=== PATIENT | male | born 1960 | race Caucasian/White ===

== ENCOUNTER → 2017-02-27 | Outpatient (CLI) | payer BC ==
[~2017-02-27] VITALS: Ht 274.3 cm; Wt 82.0 kg
[~2017-02-27] MED LIST: ATOR10TA82 PO; DEXT30TA7 PO; GLC/500 PO; LISI5TAB3 PO; PRLSR20 PO
[2017-02-27 14:13] VITALS: BP 116/72; PULSE 82; Ht 274.3 cm; Wt 82.0 kg
== END | disposition home or self-care (01) ==
LOC: C.NEUR 13:59
PROVIDERS: ATTEND Physician Assistant
DX: G47.30 Sleep apnea, unspecified (principal)

== ENCOUNTER → 2017-11-21 | Outpatient (CLI) | payer BC ==
[2017-11-21 17:19] LABS: URINE APPEARANCE CLEAR (CLEAR); URINE BILIRUBIN NEG (NEG); URINE COLOR YELLOW; URINE EPITHELIAL CELL AUTO 0-5 /lpf (0-5); URINE NITRITE NEG (NEG); URINE SPECIFIC GRAVITY 1.022 (1.000-1.030); UROBILINOGEN NEG (NEG); ZZUR CULT IF INDIC CLEAN CATCH NO
[2017-11-21 17:20] LABS: MANUAL MICROSCOPIC REQUIRED? NO; REVIEW REQ? NO
== END | disposition home or self-care (01) ==
LOC: C.LAB1850 16:46
PROVIDERS: ATTEND Internal Medicine
DX: R39.9 Unspecified symptoms and signs involving the genitourinary system (principal)

== ENCOUNTER → 2017-11-24 | Outpatient (CLI) | payer BC ==
[~2017-11-24] MED LIST changes: +GLIM2TAB2 PO; +LISI5TAB PO; +OXYC-57 PO; +SERT-234 PO; +TAMS0.4C38 PO
--- NOTE | 2017-11-24 14:09 | DIAGNOSTIC IMAGING REPORT ---
ULTRASOUND KIDNEYS AND BLADDER CLINICAL HISTORY: Dysuria. COMPARISON STUDY: Abdominal CT dated 09/16/2015. TECHNIQUE: Real-time, grayscale, and color flow sonography of the kidneys and bladder is performed. Images are reviewed in the transverse and longitudinal planes. FINDINGS: Kidneys: The kidneys are normal in size and echotexture. The right kidney measures 12.4 cm in length and the left kidney measures 12.5 cm in length. There is no hydronephrosis. A 9 mm shadowing nonobstructing calculus is present in the interpolar left kidney. A 2.8 cm cyst is noted in the right kidney and a 3.4 cm cyst arises from the lower pole of the left kidney. There is no sonographic evidence of contour deforming renal mass lesion. No perinephric fluid is identified. Bladder: The bladder is normal in appearance. Bilateral ureteral jets were seen. Upper abdomen: Survey images of the liver show evidence of hepatomegaly and severe hepatic steatosis. IMPRESSION: 1. The kidneys are normal in size and without hydronephrosis. 2. There is a nonobstructing left renal calculus. 3. The bladder is normal as visualized. 4. Hepatomegaly and severe hepatic steatosis. Electronically signed by: Adarsh La M.D. 11/24/2017 2:07 PM Dictated Date/Time: 11/24/2017 2:05 PM
== END | disposition home or self-care (01) ==
LOC: C.ULTR 13:04
PROVIDERS: ATTEND Internal Medicine
DX: N20.0 Calculus of kidney (principal); R16.0 Hepatomegaly, not elsewhere classified; K76.0 Fatty (change of) liver, not elsewhere classified

== ENCOUNTER → 2017-12-14 | Outpatient (CLI) | payer OTHER ==
[~2017-12-14] MED LIST changes: -DEXT30TA7 PO; -LISI5TAB3 PO; -OXYC-57 PO
[2017-12-14 11:01] LABS: MEAN CELL VOLUME 91.9 fL (80-100); MEAN CORPUSCULAR HEMOGLOBIN 30.6 pg (25-34); MEAN CORPUSCULAR HGB CONC 33.3 g/dl (32-36); RED CELL DISTRIBUTION WIDTH CV 13.5 % (11.5-14.5); WHITE BLOOD COUNT 5.64 K/uL (4.8-10.8)
[2017-12-14 11:30] LABS: MEAN PLATELET VOLUME 12.4 fL (7.4-10.4); PLATELET COUNT 116 K/uL (130-400)
[2017-12-14 11:35] LABS: BLOOD UREA NITROGEN 11 mg/dl (7-18); CALCIUM 9.3 mg/dl (8.5-10.1); CARBON DIOXIDE 26 mmol/L (21-32); CREATININE 1.04 mg/dl (0.60-1.40); GLUCOSE 149 mg/dl (70-99); POTASSIUM 3.9 mmol/L (3.5-5.1); SODIUM 133 mmol/L (136-145)
== END | disposition home or self-care (01) ==
LOC: C.LABBC 07:53
PROVIDERS: ATTEND Urology
DX: N20.0 Calculus of kidney (principal)

== ENCOUNTER → 2017-12-15 | Outpatient (CLI) | payer OTHER ==
--- NOTE | 2017-12-15 10:37 | DIAGNOSTIC IMAGING REPORT ---
CHEST 2 VIEWS ROUTINE CLINICAL HISTORY: N20.0 [id number] nephrocalcinosis. Preoperative evaluation. COMPARISON STUDY: 10/26/2009 FINDINGS: The bones soft tissues and hemidiaphragms are normal. The cardiomediastinal silhouette is normal. The lungs are clear. The pulmonary vasculature is normal. IMPRESSION: Negative chest. The above report was generated using voice recognition software. It may contain grammatical, syntax or spelling errors. Electronically signed by: David Chavez M.D. 12/15/2017 10:36 AM Dictated Date/Time: 12/15/2017 10:36 AM
== END | disposition home or self-care (01) ==
LOC: C.RADBC 09:48
PROVIDERS: ATTEND Urology
DX: N20.0 Calculus of kidney (principal)

== ENCOUNTER → 2017-12-28 | Outpatient (CLI) | payer OTHER ==
[~2017-12-28] MED LIST changes: +OXYC-57 PO
--- NOTE | 2017-12-28 19:17 | DIAGNOSTIC IMAGING REPORT ---
KUB HISTORY: N20.0 Nephrolithiasis COMPARISON: KUB 09/18/2015. FINDINGS: The bowel gas pattern is unremarkable. There are no dilated loops of small bowel to suggest an obstruction. There is a 7 mm stone within the left kidney. This has increased in size. There may be an additional 4 mm stone within the upper pole of the left kidney. No definite right renal calculi. No ureteral calculi. No pneumoperitoneum or pneumatosis. IMPRESSION: Left-sided nephrolithiasis as described above. No ureteral calculi. Electronically signed by: Bryson Nunez M.D. 12/28/2017 7:15 PM Dictated Date/Time: 12/28/2017 7:14 PM
== END | disposition home or self-care (01) ==
LOC: C.RAD 16:56
PROVIDERS: ATTEND Urology
DX: N20.0 Calculus of kidney (principal)

== ENCOUNTER → 2017-12-29 | Day surgery (SDC) | payer OTHER ==
[2017-12-05 15:50] VITALS: Ht 182.9 cm; Wt 111.4 kg
[~2017-12-29] VITALS: Ht 182.9 cm; Wt 111.4 kg
[~2017-12-29] MED LIST changes: +ATROPINE SULFATE 0.1 MG/ML 5ML SYR IV PRN; +CIPROFLOXACIN 400MG / D5W IV SCH; +EpHEDrine SULFATE INJ 50 MG/ML AMP IV PRN; +FENTANYL CITRATE INJ 50 MCG/1 ML 2 ML VIAL IV PRN; +FENTANYL CITRATE INJ 50 MCG/1 ML 2 ML VIAL ONE; +HYDROmorphone INJ 1 MG/ML SYR IV PRN; +LACTATED RINGER'S 1000ML 1,000 ML IV SCH; +LIDOCAINE HCL 2% 2 ML VIAL (20MG/ML) ONE; +MIDAZOLAM HCL 1 MG/ML 2ML VIAL ONE; +ONDANSETRON INJ 2 MG/ML 2 ML VIAL IV PRN; +ONDANSETRON INJ 2 MG/ML 2 ML VIAL ONE; +OXYCODONE/ACETAMINOPHEN 5-325 TAB PO PRN; +PROMETHAZINE HCL INJ 12.5 MG in SODIUM CHLORIDE 0.9% 50ML 50 ML IV PRN; +PROPOFOL IV EMULSION 10 MG/ML 20 ML VIAL IV ONE
--- NOTE | 2017-12-29 06:55 | History & Physical Bridge Note ---
H&P Re-Evaluation Bridge Note: I have examined the patient, reviewed the History & Physical and in the interval since the performance of the History & Physical I have noted the following changes of clinical significance: No changes noted
--- NOTE | 2017-12-29 07:12 | [facility] Operative Report ---
Operative Report Operative Date Dec 29, 2017. Pre-Operative Diagnosis LEFT RENAL STONES Post-Operative Diagnosis LEFT RENAL STONES Procedure(s) Performed ESWL LEFT Surgeon GOYO Estimated Blood Loss NONE Specimens NONE Drains None Anesthesia Type General Complication(s) none Disposition yes Recovery Room / PACU Indications 57 YEAR OLD WHITE MALE WITH LEFT RENAL STONES FOR ESWL Description of Procedure Patient was identified in the preoperative holding area, appropriate informed consent was reviewed and completed and the patient was transported to the operating suite. Upon arrival appropriate preoperative antibiotics were administered and general anesthesia induced. The patient was placed in supine position and the stone was localized under fluoroscopy. A total of [_2500__] shocks were delivered to the stone. There appeared to be good fragmentation of the stone. Details of this procedure can be found on the [facility] information sheet. At the conclusion of the case the patient was extubated and taken to the PACU in stable condition. There were no complications. I attest to the content of the Intraoperative Record and any orders documented therein. Any exceptions are noted below.
--- NOTE | 2017-12-29 07:15 | Discharge Instructions-SurgCtr ---
Discharge Instructions Date of Service Dec 29, 2017. Visit Reason for Visit: Stones Discharge Discharge Diagnosis / Problem: STONE Discharge Goals Goal(s): Therapeutic intervention Medications Stopped Medications Name(s): metformin stopped x 4 days. Activity Recommendations Activity Limitations: resume your previous activity (TAKE IT EASY TODAY) Exercise/Sports Limitations: rest today May Resume Sexual Activity: when tolerated Shower/Bathe: no limitations Driving or Machine Use: resume 1 day after discharge Anesthesia . Post Anesthesia Instructions: If you have had General Anesthesia or IV Sedation: * Do not drive today. * Resume driving when surgeon permits. * Do not make important decisions or sign legal documents today. * Call surgeon for: 1. Temperature elevations greater than 101 degrees F. 2. Uncontrollable pain. 3. Excessive bleeding. 4. Persistent nausea and vomiting. 5. Medication intolerance (nausea, vomiting or rash). * For nausea and vomiting use only clear liquids such as: tea, soda, bouillon until nausea subsides, then gradually increase diet as tolerated. * If you have any concerns or questions, call your surgeon's office. If physician is unavailable and it is an emergency, call 911 or go to the nearest emergency room. . Instructions / Follow-Up Instructions / Follow-Up MEDICATIONS: Resume previous medications unless instructed otherwise by your surgeon. Resume pre-ESWL medication except for aspirin, coumadin or other blood thinners. __ Toradol 10 mg every 6 hours for initial pain. __ Lortab 5 mg 1-2 every 4 hours for pain. _X_ Percocet 5 mg 1-2 every 4 hours for pain. __ Macrodantin 50 mg x 3 a day. __ Flomax 1 tab daily one half (1/2) hour after supper. SPECIAL CARE INSTRUCTIONS: 1. Get KUB (x-ray) _X_ day before or day of office visit and bring x-ray to office __ get x-ray 2 days before and tell office you are getting x-rays when you call for the appointment. 2. Strain ALL urine. 3. Please call if you have a fever, chills, severe pain, or constant dribbling of urine. 4. Office phone number . FOLLOW UP VISIT: Please call the office to schedule a follow-up appointment at . Diet Recommendations Home Diet: resume previous diet Procedures Procedures Performed: ESWL LEFT Pending Studies Studies pending at discharge: no Medical Emergencies . Who to Call and When: Medical Emergencies: If at any time you feel your situation is an emergency, please call 911 immediately. . Non-Emergent Contact Non-Emergency issues call your: Urologist Call Non-Emergent contact if: temperature is above 101.5, your pain is not controlled . . "Provider Documentation" section prepared by Harjeet Stacy. . [place] Drug Monitoring Program Search Results: patient reviewed within database
[2017-12-29 08:47] VITALS: TEMP 36.3
[2017-12-29 09:04] VITALS: BP 119/76; PULSE 59; O2SAT 97
--- NOTE | 2017-12-29 09:09 | Anesthesia Progress Nt - [facility] ---
Anesthesia Post Op Note Date & Time Dec 29, 2017 at 09:09 Vital Signs Pain Intensity: 0 Vital Signs Past 12 Hours Date Time Temp Pulse Resp B/P (MAP) Pulse Ox O2 Delivery O2 Flow Rate FiO2 12/29/17 09:04 59 16 119/76 (90) 97 Room Air 12/29/17 08:47 36.3 60 18 119/81 (94) 96 Room Air 12/29/17 08:22 36.8 56 7 12/29/17 08:22 55 7 95 12/29/17 08:20 131/78 12/29/17 08:17 56 12 12/29/17 08:17 56 12 93 12/29/17 08:16 109/76 12/29/17 08:12 56 13 12/29/17 08:12 56 13 94 12/29/17 08:11 126/79 12/29/17 08:07 62 15 98 12/29/17 08:07 62 15 12/29/17 08:06 123/79 12/29/17 08:02 56 12 12/29/17 08:02 57 12 98 12/29/17 08:01 124/81 12/29/17 07:57 57 13 98 18 07:57 57 13 12/29/17 07:56 124/83 12/29/17 07:52 60 13 96 12/29/17 07:52 60 13 12/29/17 07:51 128/82 12/29/17 07:47 58 13 97 12/29/17 07:47 58 13 12/29/17 07:46 129/84 12/29/17 07:44 138/88 12/29/17 07:42 36 62 14 138/88 96 Mask 6 12/29/17 06:33 36.6 65 18 135/82 (99) 96 Room Air Notes Mental Status: alert / awake / arousable, participated in evaluation Pt Amnestic to Procedure: Yes Nausea / Vomiting: adequately controlled Pain: adequately controlled Airway Patency, RR, SpO2: stable & adequate BP & HR: stable & adequate Hydration State: stable & adequate Anesthetic Complications: no major complications apparent
== END | disposition home or self-care (01) ==
LOC: X.SURG 06:25
PROVIDERS: ATTEND Urology
DX: N20.0 Calculus of kidney (principal); N40.1 Benign prostatic hyperplasia with lower urinary tract symptoms; N13.8 Other obstructive and reflux uropathy; E11.9 Type 2 diabetes mellitus without complications; I10 Essential (primary) hypertension; E78.00 Pure hypercholesterolemia, unspecified; F32.9 Major depressive disorder, single episode, unspecified; G47.33 Obstructive sleep apnea (adult) (pediatric); Z79.899 Other long term (current) drug therapy; Z82.49 Family history of ischemic heart disease and other diseases of the circulatory system

== ENCOUNTER → 2018-01-09 | Outpatient (CLI) | payer OTHER ==
[~2018-01-09] MED LIST changes: -ATROPINE SULFATE 0.1 MG/ML 5ML SYR IV PRN; -CIPROFLOXACIN 400MG / D5W IV SCH; -EpHEDrine SULFATE INJ 50 MG/ML AMP IV PRN; -FENTANYL CITRATE INJ 50 MCG/1 ML 2 ML VIAL IV PRN; -FENTANYL CITRATE INJ 50 MCG/1 ML 2 ML VIAL ONE; -HYDROmorphone INJ 1 MG/ML SYR IV PRN; -LACTATED RINGER'S 1000ML 1,000 ML IV SCH; -LIDOCAINE HCL 2% 2 ML VIAL (20MG/ML) ONE; -MIDAZOLAM HCL 1 MG/ML 2ML VIAL ONE; -ONDANSETRON INJ 2 MG/ML 2 ML VIAL IV PRN; -ONDANSETRON INJ 2 MG/ML 2 ML VIAL ONE; -OXYCODONE/ACETAMINOPHEN 5-325 TAB PO PRN; -PROMETHAZINE HCL INJ 12.5 MG in SODIUM CHLORIDE 0.9% 50ML 50 ML IV PRN; -PROPOFOL IV EMULSION 10 MG/ML 20 ML VIAL IV ONE
--- NOTE | 2018-01-09 08:39 | DIAGNOSTIC IMAGING REPORT ---
KUB CLINICAL HISTORY: N20.0 [id number] nephrocalcinosis COMPARISON STUDY: 12/28/2017 FINDINGS: Somewhat limited study technically due to exposure factors. No definite calcifications within this limitation. The calcifications procedure described potentially have passed or related or related to bowel content IMPRESSION: Normal study. No evidence for nephrocalcinosis The above report was generated using voice recognition software. It may contain grammatical, syntax or spelling errors. Electronically signed by: David Chavez M.D. 01/09/2018 8:38 AM Dictated Date/Time: 01/09/2018 8:32 AM
[2018-01-09 11:13] LABS: BASO % 0.7 %; BASO ABS # 0.05 K/uL (0-0.2); EOS % 3.5 %; EOS ABS # 0.25 K/uL (0-0.5); HEMATOCRIT 43.5 % (42-52); IG# 0.01 K/uL (0.00-0.02); LYMPH ABS # 2.52 K/uL (1.2-3.4); MEAN CORPUSCULAR HEMOGLOBIN 30.7 pg (25-34); MEAN CORPUSCULAR HGB CONC 34.5 g/dl (32-36); MEAN PLATELET VOLUME 11.7 fL (7.4-10.4); MONO ABS # 0.43 K/uL (0.11-0.59); NEUT % 54.7 %; NEUT ABS # 3.95 K/uL (1.4-6.5); PLATELET COUNT 120 K/uL (130-400); RED CELL DISTRIBUTION WIDTH CV 13.3 % (11.5-14.5); RED CELL DISTRIBUTION WIDTH SD 43.2 fL (36.4-46.3); WHITE BLOOD COUNT 7.21 K/uL (4.8-10.8)
[2018-01-09 11:21] LABS: ALBUMIN 4.2 gm/dl (3.4-5.0); ALT/SGPT 82 U/L (12-78); BLOOD UREA NITROGEN 12 mg/dl (7-18); CALCIUM 9.4 mg/dl (8.5-10.1); CARBON DIOXIDE 26 mmol/L (21-32); CHOLESTEROL 175 mg/dl (0-200); GLUCOSE 165 mg/dl (70-99); SODIUM 137 mmol/L (136-145)
[2018-01-09 11:26] LABS: ALKALINE PHOSPHATASE 66 U/L (45-117); AST/SGOT 52 U/L (15-37); LDL CHOLESTEROL CALCULATED 76 mg/dl; TOTAL PROTEIN 8.4 gm/dl (6.4-8.2)
== END | disposition home or self-care (01) ==
LOC: C.RADBC 07:41
PROVIDERS: ATTEND Urology
DX: N20.0 Calculus of kidney (principal); E11.9 Type 2 diabetes mellitus without complications; E78.00 Pure hypercholesterolemia, unspecified; K76.0 Fatty (change of) liver, not elsewhere classified; Z12.5 Encounter for screening for malignant neoplasm of prostate; Z11.59 Encounter for screening for other viral diseases

== ENCOUNTER → 2018-03-07 | Outpatient (CLI) | payer OTHER ==
[2018-03-07 11:43] LABS: ALT/SGPT 101 U/L (12-78); AST/SGOT 58 U/L (15-37); BLOOD UREA NITROGEN 15 mg/dl (7-18); CALCIUM 9.3 mg/dl (8.5-10.1); CARBON DIOXIDE 26 mmol/L (21-32); CREATININE 1.01 mg/dl (0.60-1.40); GLUCOSE 182 mg/dl (70-99); POTASSIUM 3.9 mmol/L (3.5-5.1); SODIUM 134 mmol/L (136-145); TOTAL PROTEIN 8.3 gm/dl (6.4-8.2)
[2018-03-07 11:44] LABS: ALKALINE PHOSPHATASE 112 U/L (45-117)
== END | disposition home or self-care (01) ==
LOC: C.LABBC 07:46
PROVIDERS: ATTEND Internal Medicine
DX: E11.9 Type 2 diabetes mellitus without complications (principal); E78.00 Pure hypercholesterolemia, unspecified; K76.0 Fatty (change of) liver, not elsewhere classified; N20.0 Calculus of kidney; Z11.59 Encounter for screening for other viral diseases; Z12.5 Encounter for screening for malignant neoplasm of prostate

== ENCOUNTER → 2018-06-28 | Outpatient (CLI) | payer OTHER ==
--- NOTE | 2018-06-28 11:16 | DIAGNOSTIC IMAGING REPORT ---
(SARWAT/BLAD)RETROPERITON COMP HISTORY: Nephrocalcinosis N20.0 Nephrolithiasis COMPARISON: 11/24/2017 FINDINGS: Right kidney: Maximum dimension 12.6 cm. No evidence for hydronephrosis. 3 cm lower pole cyst. Normal corticomedullary differentiation and cortical thickness. Left kidney: Maximum dimension 12.4 cm. No evidence for hydronephrosis. 5 mm mid pole calcification. Normal corticomedullary differentiation and cortical thickness. 3.5 cm lower pole cyst. Bladder: No bladder wall thickening. The bilateral ureteral jets were identified. IMPRESSION: 1. No evidence for hydronephrosis. 2. 3 cm right renal cyst. 3. 5 mm nonobstructing mid pole calcification. 3.5 cm lower pole cyst. The above report was generated using voice recognition software. It may contain grammatical, syntax or spelling errors. Electronically signed by: David Chavez M.D. 06/28/2018 11:14 AM Dictated Date/Time: 06/28/2018 11:13 AM
== END | disposition home or self-care (01) ==
LOC: C.ULTR 10:22
PROVIDERS: ATTEND Urology
DX: N20.0 Calculus of kidney (principal); N28.1 Cyst of kidney, acquired

== ENCOUNTER 2020-07-12 12:43 | Inpatient (IN) ==
--- NOTE | 2020-07-12 12:56 | CT Scan Report ---
CT head/brain wo con CLINICAL HISTORY: 60 years-old Male with Stroke Alert. Acute strokelike symptoms TECHNIQUE: Multiple axial CT images of the head were obtained without contrast. A dose lowering tech nique was utilized adhering to the principles of ALARA. CT DOSE: 810.83 mGy.cm COMPARISON: None. FINDINGS: No acute intracranial hemorrhage, midline shift, intracranial mass, hydrocephalus, territorial ischem ia or abnormal extra-axial collection. Age-related involutional changes. The calvarium is intact. The paranasal sinuses, mastoid air cells, and middle ear cavities are clear . IMPRESSION: No acute intracranial abnormality. ACT 112: Negative or not required by law. The above report was generated using voice recognition software. It may contain grammatical, syntax o r spelling errors. Electronically signed by: Tomás Canas M.D. 07/12/2020 12:54 PM
[2020-07-12] MEDS ORDERED: OPTIRAY 320 125ml IV ONE (13:00)
--- NOTE | 2020-07-12 13:03 | Emergency Department Note ---
Impression & Plan Facial droop, Brain TIA, Acute hyperglycemia ED Provider Note NAME: ROMAN LUNA AGE: 60 SEX: M : 1960 ARRIVES VIA: Ambulance INFORMANT: Patient, ED PROVIDER(S): Tye Guevara MD Chief Complaint: Trouble brushing teeth and facial changes HPI: Patient states he had awoken around 8 to 8:30 AM. The patient states that slightly later in the morning around 9:30 AM the patient was brushing his teeth and he thought that he was having some difficulty with brushing the teeth as well as keeping water in the mouth. Patient does not have any prior history of stroke does not take blood thinning medications. 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 Patient also did state that he had some neck and posterior head pain localized to the left side. 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 Patient did not take anything for that but the patient believes that he does not have some much headache and neck pain today. Patient did not take anything for it. He does not take any blood thinning medications, denies any alcohol or tobacco use. The patient states that his symptoms have been persistent and really no better or worse. Patient is not diabetic. Patient denies any chest pains, shortness of breath, fevers, chills, abdominal pain, nausea vomiting. The patient believes that his appetite is been appropriate he has been eating and drinking okay and denies any bowel or bladder trouble. BSG was in the 220s prior to arrival. ROS: See HPI for pertinent positives and negatives. A total of 10 systems were revi ewed and otherwise negative. Past medical history: See below Surgical history: See below Social history: See below Physical Exam: GENERAL: Wearing a mask. NAD, non-toxic. EYE EXAM: Normal conjunctiva. PERRL, no anisocoria and EOM's grossly intact w/o pain. NECK: Supple, no nuchal rigidity, no adenopathy, non-tender. No signs of meningismus. No midline C-spine TTP. LUNGS: Clear to auscultation. Normal chest wall mechanics. HEART: NSR, no MRG. ABDOMEN: Abdomen soft, non-tender, normo-active bowel sounds, no masses, no rebound or guarding. BACK: No CVA TTP. SKIN: No rashes and no bruising. UPPER EXTREMITIES: Upper extremities are grossly normal. LOWER EXTREMITIES: Grossly normal, no edema. NEURO EXAM: A&O x3, cranial nerves II-XII grossly intact with exception of slight right-sided facial droop but able to raise the eyebrows, normal speech, moves all 4 extremities on command w/o issue. Good [id number], no drift, tingling in the right upper extremity. Differential diagnoses: Infection, dehydration, metabolic abnormality, hypo/hyperglycemia, electrolyte disturbance, anemia, hypoxia, cardiac sources, intracerebral event, toxicologic, neurologic, as well as other pathologies. Course: Patient was seen and evaluated the bedside. Full history physical exam was performed. EKG: Education: Stroke work-up Normal sinus rhythm, rate of 69, normal intervals, normal axis, no ST changes or T WI. No significant change from October 26, 2009. Imaging Studies: Radiology results as stated below per my review in the radiologist's interpretation: CT head/brain wo con CLINICAL HISTORY: 60 years-old Male with Stroke Alert. Acute strokelike symptoms TECHNIQUE: Multiple axial CT images of the head were obtained without contrast. A dose lowering technique was utilized adhering to the principles of ALARA. CT DOSE: 810.83 mGy.cm COMPARISON: None. FINDINGS: No acute intracranial hemorrhage, midline shift, intracranial mass, hydrocephalus, territorial ischemia or abnormal extra-axial collection. Age- related involutional changes. The calvarium is intact. The paranasal sinuses, mastoid air cells, and middle ear cavities are clear. IMPRESSION: No acute intracranial abnormality. ACT 112: Negative or not required by law. The above report was generated using voice recognition software. It may contain grammatical, syntax or spelling errors. Electronically signed by: Tomás Canas M.D. 07/12/2020 12:54 PM Dictated: 07/12/20 1253 Transcribed: 07/12/20 125 Cardiac monitoring: An order was placed for continuous cardiac monitoring. The monitor shows a rate of [] with [] rhythm. MDM: Patient was seen due to concern for the possibility of CVA. Last known well at 9:[address] of the head is negative. Spoke the on-call tele-stroke neurologist at [facility] Dr. Taylor who kindly agreed to evaluate the patient. Patient was ordered a full dose aspirin and IV fluids. Patient's blood showed a normal white count and H&H. The patient has normal kidney function with an elevated blood glucose of 233. Patient was seen and evaluated by tele-stroke neurology. He did recommend admission. He stated would continue the aspirin, as well as fluids, checking a homocystine level, MRI of the brain and MRA of the head and neck as opposed to getting CT angios of the head and neck given that the telestroke neurologist reports that the patient had a recent unremarkable carotid Doppler. Patient was admitted to the medicine service under Dr. Daniels. Past Med/Surg History Medical History Anxiety BPH (benign prostatic hyperplasia) Chronic iritis Coronary artery calcification seen on CAT scan GERD (gastroesophageal reflux disease) Hyperlipidemia Hypertension Kidney stones Nonalcoholic fatty liver disease Obesity Wrist fracture, left Surgical History History of colonoscopy (~09/2012) History of esophagogastroduodenoscopy (EGD) (~12/2018) History of lithotripsy History of tooth extraction Family History Father Family history of diabetes mellitus Hypertension Coronary heart disease Polymyalgia rheumatica Mother Hyperthyroidism Brother Alcoholic cirrhosis Sister No problems noted. 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 [employer] Feels Safe at Home: Yes Allergies Allergies Allergy/AdvReac Type Severity Reaction Status Date / Time No Known Drug Allergies Allergy Verified 07/12/20 13:16 Home Meds Home Medications Medication Instructions Recorded Confirmed liraglutide [Victoza 3-Sharan] 1.8 mg SQ QDD 07/12/20 07/12/20 Previous Rx's Medication Instructions Recorded atorvastatin 10 mg tablet 10 mg PO QPM #90 tab 12/06/19 lisinopril 5 mg tablet 5 mg PO QAM #90 tab 12/06/19 lancets 33 gauge #100 ea 01/24/20 metformin 1,000 mg tablet 1,000 mg PO BID #180 tab 01/24/20 pen needle, diabetic 31 gauge x #30 ea 01/24/2002/09" sertraline 100 mg tablet 150 mg PO QPM #45 tab 01/24/20 Accu-Chek Guide Glucose Meter #1 ea NS 01/27/20 Accu-Chek Guide test strips #100 ea NS 01/27/20 Dexcom G6 Product Architect #1 ea NS 03/02/20 Dexcom G6 Sensor #3 ea NS 03/02/20 Dexcom G6 Transmitter #1 ea NS 03/02/20 omeprazole 20 mg tablet,delayed 20 mg PO QPM #90 tab 03/30/20 release Results & Data (ED) Vital Signs Vital Signs - 24 hr 07/12/20 12:53 07/12/20 12:57 07/12/20 13:01 Pulse Rate 71 74 72 Pulse Rate from SpO2 Sensor 70 73 74 Respiratory Rate 20 Respiratory Effort / Characteristics Non-Labored Spontaneous Respiratory Depth Normal Respiratory Pattern Regular Blood Pressure 135/86 Blood Pressure Mean 91 Pulse Oximetry 98 97 97 Oxygen Delivery Method Sepsis Recent Fever Within 48 Hours No Sepsis New/Unexplained Change in Mental Status N/A Sepsis Action Taken by Nursing No Action Required 07/12/20 13:06 07/12/20 13:15 07/12/20 13:16 Pulse Rate 74 74 72 Pulse Rate from SpO2 Sensor 75 76 73 Respiratory Rate Respiratory Effort / Characteristics Respiratory Depth Respiratory Pattern Blood Pressure 120/78 113/78 Blood Pressure Mean 93 90 Pulse Oximetry 97 97 96 Oxygen Delivery Method Sepsis Recent Fever Within 48 Hours Sepsis New/Unexplained Change in Mental Status Sepsis Action Taken by Nursing 07/12/20 14:25 Pulse Rate Pulse Rate from SpO2 Sensor Respiratory Rate Respiratory Effort / Characteristics Respiratory Depth Respiratory Pattern Blood Pressure Blood Pressure Mean Pulse Oximetry 96 Oxygen Delivery Method Room Air Sepsis Recent Fever Within 48 Hours Sepsis New/Unexplained Change in Mental Status Sepsis Action Taken by Snf Medications Current Medication List: was personally reviewed by me Laboratory Data Attestation: I reviewed the patient's lab results. Result diagrams: 07/12/20 12:56 07/12/20 12:56 Lab Results 07/12/20 07/12/20 07/12/20 Range/Units 12:56 12:56 12:56 WBC 5.59 (4.8-10.8) K/uL RBC 4.88 (4.7-6.1) M/uL Hgb 14.5 (14.0-18.0) g/dL Hct 42.3 (42-52) % MCV 86.7 (80-100) fL MCH 29.7 (25-34) pg MCHC 34.3 (32-36) g/dL RDW Std Deviation 42.6 (36.4-46.3) fL RDW Coeff of Lexa 13.3 (11.5-14.5) % Plt Count 91 L (130-400) K/uL MPV 11.8 H (7.4-10.4) fL Immature Gran % (Auto) 0.2 % Neut % (Auto) 60.8 % Lymph % (Auto) 28.4 % Hall % (Auto) 7.0 % Eos % (Auto) 2.7 % Baso % (Auto) 0.9 % Neut # (Auto) 3.40 (1.4-6.5) K/uL Lymph # (Auto) 1.59 (1.2-3.4) K/uL Hall # (Auto) 0.39 (0.11-0.59) K/uL Eos # (Auto) 0.15 (0-0.5) K/uL Baso # (Auto) 0.05 (0-0.2) K/uL Immature Gran # (Auto) 0.01 (0.00-0.02) K/uL Platelet Estimate Decreased L (Normal) RBC Morphology Unremarkable PT 11.3 (9.0-12.0) Seconds INR 1.1 (0.9-1.1) APTT 33.3 H (21.0-31.0) Seconds PTT Ratio 1.2 Sodium 136 (136-145) mmol/L Potassium 4.0 (3.5-5.1) mmol/L Chloride 103 (98-107) mmol/L Carbon Dioxide 25 (21-32) mmol/L Anion Gap 8.0 (3-11) BUN 15 (7-18) mg/dl Creatinine 0.97 (0.6-1.4) mg/dl Est Cr Clr Drug Dosing 103.7 ml/min Est GFR ( Amer) 99.3 Est GFR (Non-Af Amer) 85.7 BUN/Creatinine Ratio 15.2 (10-20) Glucose 233 H (70-99) mg/dl Calcium 9.2 (8.5-10.1) mg/dl Magnesium 1.8 (1.8-2.4) mg/dl Total Bilirubin 0.3 (0.2-1) mg/dl AST 33 (15-37) U/L ALT 76 (12-78) U/L Alkaline Phosphatase 100 (45-117) U/L Troponin I < 0.015 (0-0.045) ng/ml Total Protein 8.0 (6.4-8.2) gm/dl Albumin 3.9 (3.4-5.0) gm/dl Globulin 4.1 H (2.5-4.0) gm/dl Albumin/Globulin Ratio 1.0 (0.9-2) 16 Range/Units 12:56 WBC (4.8-10.8) K/uL RBC (4.7-6.1) M/uL Hgb (14.0-18.0) g/dL Hct (42-52) % MCV (80-100) fL MCH (25-34) pg MCHC (32-36) g/dL RDW Std Deviation (36.4-46.3) fL RDW Coeff of Lexa (11.5-14.5) % Plt Count (130-400) K/uL MPV (7.4-10.4) fL Immature Gran % (Auto) % Neut % (Auto) % Lymph % (Auto) % Hall % (Auto) % Eos % (Auto) % Baso % (Auto) % Neut # (Auto) (1.4-6.5) K/uL Lymph # (Auto) (1.2-3.4) K/uL Hall # (Auto) (0.11-0.59) K/uL Eos # (Auto) (0-0.5) K/uL Baso # (Auto) (0-0.2) K/uL Immature Gran # (Auto) (0.00-0.02) K/uL Platelet Estimate (Normal) RBC Morphology PT (9.0-12.0) Seconds INR (0.9-1.1) APTT (21.0-31.0) Seconds PTT Ratio Sodium (136-145) mmol/L Potassium (3.5-5.1) mmol/L Chloride (98-107) mmol/L Carbon Dioxide (21-32) mmol/L Anion Gap (3-11) BUN (7-18) mg/dl Creatinine (0.6-1.4) mg/dl Est Cr Clr Drug Dosing ml/min Est GFR ( Amer) Est GFR (Non-Af Amer) BUN/Creatinine Ratio (10-20) Glucose (70-99) mg/dl Calcium (8.5-10.1) mg/dl Magnesium (1.8-2.4) mg/dl Total Bilirubin (0.2-1) mg/dl AST (15-37) U/L ALT (12-78) U/L Alkaline Phosphatase (45-117) U/L Troponin I Cancelled (0-0.045) ng/ml Total Protein (6.4-8.2) gm/dl Albumin (3.4-5.0) gm/dl Globulin (2.5-4.0) gm/dl Albumin/Globulin Ratio (0.9-2) Administered Medications Discontinued Medications Aspirin (Aspirin Chew 324 Mg) 324 mg PO NOW STA Stop: 07/12/20 13:10 Last Admin: 07/12/20 14:00 Dose: 324 mg Documented by: [id number] Sodium Chloride (Nss 1000ml) 500 mls @ 999 mls/hr IV .Q31M ONE Stop: 07/12/20 13:39 Last Admin: 07/12/20 14:01 Dose: 999 mls/hr Documented by: [id number] Ioversol (Optiray 320 125ml) 120 ml IV ONCE ONE Stop: 07/12/20 13:01 Last Admin: 07/12/20 13:01 Dose: 120 ml Documented by: [id number] Discharge Plan Visit Data Chief Complaint: Stroke Alert ED Provider: Tye Guevara Discharge Problem: Facial droop, Brain TIA, Acute hyperglycemia Forms Stand Alone Forms: My [facility] [place] uConnect Prescriptions Prescriptions: No Action atorvastatin [Lipitor] 10 mg tablet 10 mg PO QPM Qty: 90 RF: 3 lisinopril 5 mg tablet 5 mg PO QAM Qty: 90 RF: 3 (DME) Accu-Chek Guide test strips Strip See Rx Instructions .ROUTE .MEDSUPPLY Qty: 100 RF: 3 (DME) blood-glucose meter [Accu-Chek Guide Glucose Meter] Misc See Rx Instructions .ROUTE .MEDSUPPLY Qty: 1 RF: 3 omeprazole 20 mg tablet,delayed release (DR/EC) 20 mg PO QPM Qty: 90 RF: 3 (DME) Dexcom G6 Product Architect Misc See Rx Instructions .ROUTE .MEDSUPPLY Qty: 1 RF: 0 (DME) Dexcom G6 Sensor Device See Rx Instructions .ROUTE .MEDSUPPLY Qty: 3 RF: 11 (DME) Dexcom G6 Transmitter Device See Rx Instructions .ROUTE .MEDSUPPLY Qty: 1 RF: 3 sertraline 100 mg tablet 150 mg PO QPM Qty: 45 RF: 5 (DME) lancets [OneTouch Delica Lancets] 33 gauge misc See Dose Instructions .ROUTE .MEDSUPPLY Qty: 100 RF: 3 metformin 1,000 mg tablet 1,000 mg PO BID Qty: 180 RF: 3 (DME) pen needle, diabetic [BD Ultra-Fine Mini Pen Needle] 31 gauge x 3/16" needle See Dose Instructions .ROUTE .MEDSUPPLY Qty: 30 RF: 5 Victoza 3-Sharan 0.6 mg/0.1 mL (18 mg/3 mL) pen injector 1.8 mg SQ QDD RF: 0
[2020-07-12] MEDS ORDERED: SODIUM CHLORIDE 0.9% 1000ML 500 ML IV ONE (13:09)
[2020-07-12] MEDS ORDERED: ASPIRIN CHEW 324 MG PO STA (13:09)
[2020-07-12 13:11] LABS: Hematocrit (blood only) 42.3 % (42-52); Hemoglobin 14.5 g/dL (14.0-18.0); Mean Corpuscular Hemoglobin 29.7 pg (25-34); Mean Corpuscular Hgb Conc 34.3 g/dL (32-36); Mean Corpuscular Volume 86.7 fL (80-100); RDW Coefficient of Variation 13.3 % (11.5-14.5); RDW Standard Deviation 42.6 fL (36.4-46.3); Red Blood Count 4.88 M/uL (4.7-6.1); White Blood Count 5.59 K/uL (4.8-10.8)
[2020-07-12 13:17] LABS: INR 1.1 (0.9-1.1); Partial Thromboplastin Ratio 1.2; Partial Thromboplastin Time 33.3 Seconds (21.0-31.0); Prothrombin Time 11.3 Seconds (9.0-12.0)
[2020-07-12 13:24] LABS: Alanine Aminotransferase 76 U/L (12-78); Albumin Level 3.9 gm/dl (3.4-5.0); Aspartate Aminotransferase 33 U/L (15-37); BUN Creatinine Ratio 15.2 (10-20); Blood Urea Nitrogen 15 mg/dl (7-18); Calcium 9.2 mg/dl (8.5-10.1); Carbon Dioxide 25 mmol/L (21-32); Chloride 103 mmol/L (98-107); Creatinine Clr Calc Pharmacy 103.7 ml/min; Est GFR (African American) 99.3; Est GFR (Non-African American) 85.7; Glucose 233 mg/dl (70-99); Magnesium 1.8 mg/dl (1.8-2.4); Sodium 136 mmol/L (136-145)
[2020-07-12 13:29] LABS: Alkaline Phosphatase 100 U/L (45-117); Bilirubin,Total 0.3 mg/dl (0.2-1); Globulin 4.1 gm/dl (2.5-4.0); Troponin I < 0.015 ng/ml (0-0.045)
--- NOTE | 2020-07-12 13:29 | XRay Report ---
XR chest 1V portable HISTORY: 60 years-old Male stroke alert COMPARISON: Chest radiographs 12/15/2017 TECHNIQUE: Portable AP view of the chest FINDINGS: Cardiomediastinal and hilar silhouettes are within normal limits. No pneumothorax, pleural effusion, airspace consolidation or overt pulmonary edema. Bones of the chest appear grossly intact. Calcified plaque of the thoracic aortic arch. IMPRESSION: No acute process. ACT 112: Negative or not required by law. The above report was generated using voice recognition software. It may contain grammatical, syntax o r spelling errors. Electronically signed by: Tomás Canas M.D. 07/12/2020 1:28 PM
[2020-07-12 13:36] LABS: Mean Platelet Volume 11.8 fL (7.4-10.4); Platelet Count 91 K/uL (130-400)
[2020-07-12 13:38] LABS: Basophils # (auto) 0.05 K/uL (0-0.2); Basophils % (auto) 0.9 %; Eosinophils # (auto) 0.15 K/uL (0-0.5); Eosinophils % (auto) 2.7 %; Immature Granulocytes # (auto) 0.01 K/uL (0.00-0.02); Immature Granulocytes % (auto) 0.2 %; Lymphocytes # (auto) 1.59 K/uL (1.2-3.4); Lymphocytes % (auto) 28.4 %; Monocytes # (auto) 0.39 K/uL (0.11-0.59); Neutrophils % (auto) 60.8 %; Platelet Estimate Decreased (Normal); RBC Morphology Unremarkable
--- NOTE | 2020-07-12 14:42 | History & Physical Report ---
Date of Service July 12, 2020 Assessment & Plan (1) TIA (transient ischemic attack): Patient presented with right sided facial droop and b/l lower facial numbness (adeline-oral) starting this am. He had had an occipital headache yesterday evening that is now resolved. In addition he complained of left mandibular pain starting today. He underwent telehealth stroke evaluation by [facility] and TPA was not administered nor advised. MRI brain along with MRA head/neck were recommended. Aspirin 324mg po x 1 was given. I saw Mr Jung for the first time following the MRI brain. Although MRI brain was negative for acute/subacute stroke he still had obvious right-sided lower facial droop and ongoing paresthesias of the face in a b/l distribution around the mouth. He did not have motor or sensory deficits in any limb. I spoke with Dr Heard from [facility] neurology who graciously came to evaluate Mr Jung this evening. Differential -- brainstem TIA vs brainstem stroke that wasn't seen on initial MRI today vs bulbar myasthenia (Dr Heard felt the patient had left eyelid deficits) vs other. Lyme serologies were negative. Sed rate/crp were normal. Complex migraine was considered earlier in his ER stay but given the duration of his symptoms at this point complex migraine is unlikely. Plan - * dysphagia screen * PT, OT, speech evals * asa 81mg daily; I spoke with on-call [facility] and, despite h/o esophageal varices, it is OK to administer daily low-dose aspirin * echo w/ bubble study * telemetry monitoring * check A1c and lipids in am * continue lipitor * SCDs for DVT proph * NS hydration overnight * repeat MRI brain with and without contrast in the AM * regardless of tomorrow's MRI brain results strongly consider 30-day event monitor following discharge * homocysteine level has been dispatched from ER (2) Stroke-like symptoms: see above in "TIA" acute stroke is top of differential at this time despite the negative MRI brain clinical presentation is complicated given his b/l symptoms (3) Facial droop: right sided, lower 2/3 of face only. right forehead movements are normal making Devine's Palsy unlikely. Further, lyme serologies were negative. (4) Uncontrolled type 2 diabetes mellitus with complication: Check a1c in am. Lantus 8 units at HS. novolog sliding scale - correction factor 30; carb ratio 1:10. hold metformin. (5) Hypertension: hold JUD to allow permissive HTN in the setting of above (6) Hypercholesterolemia: check lipids in am continue statin (7) Obstructive sleep apnea syndrome, moderate: ok to use home CPAP machine (8) Nonalcoholic fatty liver disease: follows with Dr Wray, [facility]. known varices on prior EGD. cont PPI. again I checked with on-call [facility] and ok to use low-dose aspirin for secondary prevention. (9) Thrombocytopenia: likely 2nd to liver disease. cannot rule out low-grade, chronic ITP. b12 level wnl. (10) Obesity (BMI 30-39.9): BMI 30.2 (11) Anxiety: cont SSRI (12) Esophageal varices: history of such, 2nd to NAFLD. (13) DVT prophylaxis: platelets are 90s hold off on lovenox or heparin for now SCDs at this time care d/w Dr Heard from neurology multiple times - appreciate his assistance History of Present Illness Chief Complaint: numbness of b/l face, trouble brushing his teeth Primary Care Provider: Ady Grimm MD 60yo male with history of HTN, T2DM, ORESTES, BPH and hyperlipidemia who presents with posterior/occipital headache starting last night for which he took advil. Went to sleep, woke up about 8/830am, and felt fine. The headache that he had had the night before was gone. Then, about 0930, he tried to brush his teeth but noticed difficulty with doing so. He had BILATERAL numbness of the lower face (not unilateral). He then noted right facial droop. He tried to drink with a straw and had difficulty with such. Tried to eat breakfast but had hard time doing so. No fevers or chills. No motor weakness in the arms/legs. No balance troubles or gait issues. No visual loss. No vertigo. He has noted an ache in his left mandible today as well. At 1230 states he walked into the dining room and he looked unwell to her. Speech was slightly slurry and his noted the right-sided facial droop. He was talking slowly as well. states he has been under tremendous stress at work at [employer]. He has had migraines in the past ("ocular migraines") about 2-3 years ago. Denies any obvious tick bites but he works avidly in his yard/garden. Allergies Allergy/AdvReac Type Severity Reaction Status Date / Time No Known Drug Allergies Allergy Verified 07/12/20 13:16 Home Medications Home Medications Medication Instructions Recorded Confirmed Type atorvastatin 10 mg tablet 10 mg PO QPM #90 tab 12/06/19 07/12/20 Rx lisinopril 5 mg tablet 5 mg PO QAM #90 tab 12/06/19 07/12/20 Rx lancets 33 gauge #100 ea 01/24/20 06/01/20 Rx metformin 1,000 mg tablet 1,000 mg PO BID #180 tab 01/24/20 07/12/20 Rx pen needle, diabetic 31 gauge x #30 ea 01/24/20 06/01/20 Rx 02/09" sertraline 100 mg tablet 150 mg PO QPM #45 tab 01/24/20 07/12/20 Rx Accu-Chek Guide Glucose Meter #1 ea NS 01/27/20 06/01/20 Rx Accu-Chek Guide test strips #100 ea NS 01/27/20 06/01/20 Rx Dexcom G6 Crop Grain Or Livestock Farm Manager #1 ea NS 03/02/20 06/01/20 Rx Dexcom G6 Sensor #3 ea NS 03/02/20 06/01/20 Rx Dexcom G6 Transmitter #1 ea NS 03/02/20 06/01/20 Rx omeprazole 20 mg tablet,delayed 20 mg PO QPM #90 tab 03/30/20 07/12/20 Rx release liraglutide [Victoza 3-Sharan] 1.8 mg SQ QDD 07/12/20 07/12/20 History Past Med/Surg History Medical History (Updated 07/12/20 @ 20:52 by Pierce Daniels) Anxiety BPH (benign prostatic hyperplasia) Chronic iritis Coronary artery calcification seen on CAT scan GERD (gastroesophageal reflux disease) Hyperlipidemia Hypertension Kidney stones Nonalcoholic fatty liver disease follows with Dr Cali Wray [facility] Obesity Obstructive sleep apnea syndrome, moderate Uncontrolled type 2 diabetes mellitus with complication Wrist fracture, left Surgical History History of colonoscopy (~09/2012) History of esophagogastroduodenoscopy (EGD) (~12/2018) history of varices History of lithotripsy History of tooth extraction Family History Father Family history of diabetes mellitus Hypertension Coronary heart disease Polymyalgia rheumatica Mother Hyperthyroidism Brother , age 42 Alcoholic cirrhosis Sister No problems noted. 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 How many Children do You have: 2 How many Children do You have Comment: 1 daughter, 1 son Feels Safe at Home: Yes Safety Concerns: Feels Safe At This Time Review of Systems Constitutional: no fever, no chills, no fatigue, no anorexia and no weight loss Eyes: no worsening vision Ear, Nose, Mouth, Throat: no nasal congestion, no sore throat and no dysphagia no loss of taste or smell Respiratory: no cough, no dyspnea and no dyspnea on exertion Cardiovascular: no chest pain, no orthopnea, no paroxysmal nocturnal dyspnea and no edema Gastrointestinal: + diarrhea/loose stools (2nd metformin ); no abdominal pain, no nausea and no vomiting Genitourinary: no dysuria Musculoskeletal: + neck pain (yesterday ); no joint pain Integumentary: no rash Neurologic: as per Subjective / HPI, + localized weakness (right lower facial droop ), + loss of sensation (right hand ), + paresthesia (face - lips b/l ) and + headache(s); no gait abnormality Psychiatric: + anxiety Endocrine: T2DM - was using a continuous glucose monitoring system until a few weeks ago but ran out of supplies. Since stopping the glucose monitoring system his sugars have been higher than previous (were <200, now >200) Hematologic / Lymphatic: no easy bleeding Physical Exam Constitutional: well developed, well nourished, + obese and comfortable; no acute distress and no altered mental status Eyes: normal visual lewis by confrontation, + conjunctival abnormality (mild amount of injection RIGHT ), PERRL and EOM intact bilaterally ENMT: Ears: no TM abnormality Mouth: no oropharynx abnormality and oral mucous membranes not dry no obvious abnormalities of the left mandible to pal pation over reported area of pain; he does have clicking/clunking over both TMJs with opening / closing of jaw Neck: trachea midline, no thyromegaly Respiratory: normal respiratory effort, lungs clear to auscultation Cardiovascular: Rate/Rhythm: regular rate and regular rhythm Heart Sounds: normal S1 and normal S2; no murmur Vessels: posterior tibial pulses present and dorsalis pedis pulses present; no JVD and no carotid bruit Extremities: no edema Gastrointestinal (Abdomen): normal bowel sounds, soft, nontender, no hepatosplenomegaly Musculoskeletal: no cyanosis or clubbing, extremities motor strength 5/5 Skin: no rashes, warm and dry Neurologic: deep tendon reflexes 2+ bilaterally, moves all extremities and + focal motor deficit (right facial droop, lower 2/3 of face; NO DEVINE'S PALSY); not confused Speech / Cognition: normal speech Motor/Sensory: no tremor and no pronator drift Cranial Nerves: PERRL, normal accommodation, EOM intact bilaterally, tongue midline, normal hearing, able to elevate shoulders bilaterally, no nystagmus and symmetric palate elevation Coordination: normal [id number] test sensation intact to light touch b/l in both arms and legs; mild sensory loss over right lower face near the right corner of mouth Psychiatric: A+Ox3, euthymic affect Lymphatic: no cervical lymphadenopathy Results & Data Results & Data ([facility]) Vital Signs (Past 12 Hours) Vital Signs Pulse Resp BP Pulse Ox 07/12/20 14:25 96 07/12/20 13:16 72 96 07/12/20 13:15 74 113/78 97 07/12/20 13:06 74 120/78 97 07/12/20 13:01 72 97 07/12/20 12:57 74 97 07/12/20 12:53 71 20 135/86 98 Laboratory Results Laboratory Results - last 24 hr 07/12/20 07/12/20 07/12/20 12:56 12:56 12:56 WBC 5.59 RBC 4.88 Hgb 14.5 Hct 42.3 MCV 86.7 MCH 29.7 MCHC 34.3 RDW Std Deviation 42.6 RDW Coeff of Lexa 13.3 Plt Count 91 L MPV 11.8 H Immature Gran % (Auto) 0.2 Neut % (Auto) 60.8 Lymph % (Auto) 28.4 [place] % (Auto) 7.0 Eos % (Auto) 2.7 Baso % (Auto) 0.9 Neut # (Auto) 3.40 Lymph # (Auto) 1.59 [place] # (Auto) 0.39 Eos # (Auto) 0.15 Baso # (Auto) 0.05 Immature Gran # (Auto) 0.01 Platelet Estimate Decreased L RBC Morphology Unremarkable ESR PT 11.3 INR 1.1 APTT 33.3 H PTT Ratio 1.2 Sodium 136 Potassium 4.0 Chloride 103 Carbon Dioxide 25 Anion Gap 8.0 BUN 15 Creatinine 0.97 Est Cr Clr Drug Dosing 103.7 Est GFR ( Amer) 99.3 Est GFR (Non-Af Amer) 85.7 BUN/Creatinine Ratio 15.2 Glucose 233 H POC Glucose Calcium 9.2 Magnesium 1.8 Total Bilirubin 0.3 AST 33 ALT 76 Alkaline Phosphatase 100 Troponin I < 0.015 C-Reactive Protein Total Protein 8.0 Albumin 3.9 Globulin 4.1 H Albumin/Globulin Ratio 1.0 Vitamin B12 Homocysteine Lyme Disease IgG Ab Lyme Disease IgM Ab 07/12/20 07/12/20 07/12/20 12:56 12:56 12:56 WBC RBC Hgb Hct MCV MCH MCHC RDW Std Deviation RDW Coeff of Lexa Plt Count MPV Immature Gran % (Auto) Neut % (Auto) Lymph % (Auto) [place] % (Auto) Eos % (Auto) Baso % (Auto) Neut # (Auto) Lymph # (Auto) [place] # (Auto) Eos # (Auto) Baso # (Auto) Immature Gran # (Auto) Platelet Estimate RBC Morphology ESR 13 PT INR APTT PTT Ratio Sodium Potassium Chloride Carbon Dioxide Anion Gap BUN Creatinine Est Cr Clr Drug Dosing Est GFR ( Amer) Est GFR (Non-Af Amer) BUN/Creatinine Ratio Glucose POC Glucose Calcium Magnesium Total Bilirubin AST ALT Alkaline Phosphatase Troponin I Cancelled C-Reactive Protein Total Protein Albumin Globulin Albumin/Globulin Ratio Vitamin B12 Homocysteine Pending Lyme Disease IgG Ab Lyme Disease IgM Ab 07/12/20 07/12/20 07/12/20 12:56 17:30 17:30 WBC RBC Hgb Hct MCV MCH MCHC RDW Std Deviation RDW Coeff of Lexa Plt Count MPV Immature Gran % (Auto) Neut % (Auto) Lymph % (Auto) [place] % (Auto) Eos % (Auto) Baso % (Auto) Neut # (Auto) Lymph # (Auto) [place] # (Auto) Eos # (Auto) Baso # (Auto) Immature Gran # (Auto) Platelet Estimate RBC Morphology ESR PT INR APTT PTT Ratio Sodium Potassium Chloride Carbon Dioxide Anion Gap BUN Creatinine Est Cr Clr Drug Dosing Est GFR ( Amer) Est GFR (Non-Af Amer) BUN/Creatinine Ratio Glucose POC Glucose Calcium Magnesium Total Bilirubin AST ALT Alkaline Phosphatase Troponin I C-Reactive Protein < 0.29 Total Protein Albumin Globulin Albumin/Globulin Ratio Vitamin B12 667 Homocysteine Lyme Disease IgG Ab Negative Lyme Disease IgM Ab Negative 07/12/20 18:18 WBC RBC Hgb Hct MCV MCH MCHC RDW Std Deviation RDW Coeff of Lexa Plt Count MPV Immature Gran % (Auto) Neut % (Auto) Lymph % (Auto) [place] % (Auto) Eos % (Auto) Baso % (Auto) Neut # (Auto) Lymph # (Auto) [place] # (Auto) Eos # (Auto) Baso # (Auto) Immature Gran # (Auto) Platelet Estimate RBC Morphology ESR PT INR APTT PTT Ratio Sodium Potassium Chloride Carbon Dioxide Anion Gap BUN Creatinine Est Cr Clr Drug Dosing Est GFR ( Amer) Est GFR (Non-Af Amer) BUN/Creatinine Ratio Glucose POC Glucose 137 H Calcium Magnesium Total Bilirubin AST ALT Alkaline Phosphatase Troponin I C-Reactive Protein Total Protein Albumin Globulin Albumin/Globulin Ratio Vitamin B12 Homocysteine Lyme Disease IgG Ab Lyme Disease IgM Ab Diagnostic Findings 1. CXR - no acute process. 2. CT head - FINDINGS: No acute intracranial hemorrhage, midline shift, intracranial mass, hydrocephalus, territorial ischemia or abnormal extra-axial collection. Age- related involutional changes. The calvarium is intact. The paranasal sinuses, mastoid air cells, and middle ear cavities are clear. IMPRESSION: No acute intracranial abnormality. 3. MRI Brain - FINDINGS: No restricted diffusion to suggest acute or subacute infarct. Midline structures including the corpus callosum, brainstem, optic chiasm, pituitary and pineal glands appear unremarkable on the sagittal T1 series. Low-lying cerebellar tonsils. Degenerative changes are noted involving the imaged cervical spine. Study is mildly motion degraded. No acute intracranial hemorrhage, midline shift, extra-axial collection, hydr ocephalus or intracranial mass. No significant T2/FLAIR signal abnormalities of the brain parenchyma. Major vascular flow voids are patent. Mild mucosal thickening of the ethmoid air cells and left nasal turbinates. Skull, orbits and soft tissues are unremarkable. IMPRESSION: No acute intracranial abnormality, specifically there is no evidence of acute or subacute infarct. 4. MRA head - no intra-cranial aneurysm, stenosis or dissection. 5. MRA neck - no dissection, aneurysm, or stenosis. 6. EKG - my reading - NSR, no ST changes Code Status & VTE Plan Code Status full VTE Prophylaxis Plan VTE Prophylaxis will be ordered: Yes PG Care Time/CCT Total # of Minutes Spent Total Time Spent with Patient: Total time spent is greater than 50% in coordination of care (as documented) at patient's floor/unit and/or counseling patient: Coding Level of Care Code 94862 Initial Inpt Care Lvl 3 Diagnoses TIA (transient ischemic attack) G45.9 Stroke-like symptoms R29.90 Facial droop R29.810 Uncontrolled type 2 diabetes mellitus with complication E11.8; E11.65 Hypertension I10 Hypertension type: essential hypertension Hypercholesterolemia E78.00 Obstructive sleep apnea syndrome, moderate G47.33 Nonalcoholic fatty liver disease K76.0 Thrombocytopenia D69.6 Obesity (BMI 30-39.9) E66.9 Anxiety F41.9 Esophageal varices I85.10 Esophageal varices type: secondary Esophageal varices bleeding: without bleeding DVT prophylaxis Z29.9 (1) Hypertension Hypertension type: essential hypertension Qualified Code(s): I10 - Essential (primary) hypertension (2) Esophageal varices Esophageal varices type: secondary Esophageal varices bleeding: without bleeding Qualified Code(s): I85.10 - Secondary esophageal varices without bleed ing
--- NOTE | 2020-07-12 15:36 | Magnetic Resonance Report ---
MR brain wo con HISTORY: 60 years-old Male R sided facial droop acute strokelike symptoms COMPARISON: Head CT of same day TECHNIQUE: Multiplanar multisequence MRI of the brain was obtained without the use of IV contrast. FINDINGS: No restricted diffusion to suggest acute or subacute infarct. Midline structures including the corpus callosum, brainstem, optic chiasm, pituitary and pineal glands appear unremarkable on the sagittal T 1 series. Low-lying cerebellar tonsils. Degenerative changes are noted involving the imaged cervical spine. Study is mildly motion degraded. No acute intracranial hemorrhage, midline shift, extra-axial collection, hydrocephalus or intracrania l mass. No significant T2/FLAIR signal abnormalities of the brain parenchyma. Major vascular flow voi ds are patent. Mild mucosal thickening of the ethmoid air cells and left nasal turbinates. Skull, orb its and soft tissues are unremarkable. IMPRESSION: No acute intracranial abnormality, specifically there is no evidence of acute or subacute infarct. ACT 112: Negative or not required by law. The above report was generated using voice recognition software. It may contain grammatical, syntax o r spelling errors. Electronically signed by: Tomás Canas M.D. 07/12/2020 3:35 PM
--- NOTE | 2020-07-12 15:40 | Magnetic Resonance Report ---
MR angio head wo con HISTORY: 60 years-old Male R sided facial droop acute strokelike symptoms COMPARISON: MRI brain of same day TECHNIQUE: MRA of the head was obtained without the use of IV contrast utilizing 3-D [id number] s equencing with MIP reformats. All measurements were obtained according to NASCET criteria. FINDINGS: The imaged bilateral internal carotid arteries, middle and anterior cerebral arteries are patent. Dim inutive left A1 segment, likely developmental. The imaged vertebral arteries are patent. The basilar and posterior cerebral arteries are also patent. No aneurysm, dissection, high-grade stenosis or prox imal branch occlusion. IMPRESSION: Unremarkable MRA of the head. ACT 112: Negative or not required by law. The above report was generated using voice recognition software. It may contain grammatical, syntax o r spelling errors. Electronically signed by: Tomás Canas M.D. 07/12/2020 3:39 PM
--- NOTE | 2020-07-12 16:32 | Magnetic Resonance Report ---
MR angio neck wo con HISTORY: 60 years-old Male R sided facial droop acute strokelike symptoms COMPARISON: MRA of the head of same day TECHNIQUE: MRA of the neck obtained without the use of IV contrast utilizing 3-D [id number] seque ncing. All measurements were obtained according to NASCET criteria. FINDINGS: [employer] Supervisor localizer images demonstrate no gross abnormality. Motion degraded exam. Three-vessel morpholog y of aortic arch. The innominate artery, common and internal carotid arteries are patent. Codominant and patent vertebral arteries. No aneurysm, dissection, high-grade stenosis or proximal branch occlus ion identified. The soft tissues appear unremarkable. IMPRESSION: Unremarkable MRA of the neck. ACT 112: Negative or not required by law. The above report was generated using voice recognition software. It may contain grammatical, syntax o r spelling errors. Electronically signed by: Tomás Canas M.D. 07/12/2020 4:31 PM
[2020-07-12] MEDS ORDERED: ONDANSETRON INJ 2 MG/ML 2 ML VIAL IV PRN (17:23)
[2020-07-12] MEDS ORDERED: PHARMACIST DISCHARGE MED REC CONSULT PRN (17:23)
[2020-07-12] MEDS ORDERED: ACETAMINOPHEN 325 MG TAB PO PRN (17:23)
[2020-07-12] MEDS ORDERED: NITROGLYCERIN SL 0.4 MG/TAB TAB SL PRN (17:23)
[2020-07-12] MEDS: SODIUM CHLORIDE 0.9% 1000ML 1,000 ML IV SCH (17:29)
[2020-07-12] MEDS ORDERED: GLUCOSE 10 TABS/TUBE PO PRN (17:30)
[2020-07-12] MEDS ORDERED: DEXTROSE 50% 50 ML SYRINGE IV PRN (17:30)
[2020-07-12] MEDS ORDERED: GLUCAGON FOR INJ 1 MG VIAL IM PRN (17:30)
[2020-07-12] MEDS ORDERED: CARBOHYDRATES FOR HYPOGLYCEMIA PO PRN (17:30)
[2020-07-12] MEDS ORDERED: GLUCOSE 40% GEL 15 GM TUBE PO PRN (17:30)
[2020-07-12 18:41] LABS: Lyme Ab IgG w/WB Rflx Negative (Negative); Lyme Ab IgM w/WB Rflx Negative (Negative)
[2020-07-12] MEDS: INSULIN ASPART 100 UNITS/ML 3 ML PEN SC SCH ×2 (19:11→21:36)
--- NOTE | 2020-07-12 19:41 | Neurology Consultation ---
Date of Consultation July 12, 2020 Assessment & Plan (1) Stroke-like symptoms: (2) Facial droop: (3) Vertebrobasilar circulation transient ischemic attack: This patient's presentation and current examination findings are potentially consistent with a small brainstem stroke or TIA. His examination does reveal mild to moderate right lower facial weakness as well as weakness of closure of the left eyelid. He does not have an obvious Elaine's syndrome. He does not have an obvious crossed sensory deficit at this time. I would, however, also put bulbar myasthenia gravis on the list of diagnostic possibilities. Yet, his presentation was rather acute. Lyme disease excluded on the basis of negative Lyme IgG and IgM serology at this time. The mild cerebellar tonsillar ectopia would not likely explain this patient's clinical presentation. I do not think his clinical presentation fits very well with complicated migraine. Case discussed with Dr. Daniels. Would recommend a repeat brain MRI with and without contrast tomorrow morning to reevaluate for a possible small brainstem stroke. Would also recommend a transthoracic echocardiogram with bubble study. I will order acetylcholine receptor antibodies. Agree with daily low-dose aspirin. Continue with atorvastatin. Continue to monitor blood pressure, current blood pressure appropriate. Patient has been notably normotensive during this hospitalization. Dr. Aponte will be coming on service tomorrow. History of Present Illness Reason for Consultation: Facial droop, concern for stroke Requesting Physician: Pierce Daniels MD Attending Physician: Pierce Daniels History of Present Illness The patient is a 60-year-old male with a chief complaint of facial droop and dysphasia. He first noticed his symptoms while brushing his teeth and while eating breakfast and attempting to drink from a straw. He also complains of an associated feeling of numbness around and in the mouth as well as along the left side of his cheek. He also complains of an associated posterior headache and a feeling of eye weakness on the left, especially noted when looking to the left. He is also aware that his left eyelid seems to be weak with closure. He denies experiencing any diplopia. He denies experiencing any associated vertigo, drop attack, syncope, or weakness or sensory loss of the arms or legs. His headache and facial/perioral numbness have resolved although he continues to report droopiness of the right lower face as well as a feeling of weakness with closure of the left eyelid. He denies experiencing any double vision. Past medical history notable for diabetes mellitus, hypertension, and hypercholesterolemia. He does not take an antiplatelet medication but does take a low-dose of atorvastatin, lisinopril, and medication for his diabetes. He denies a history of stroke or TIA. He does report a history of rare ocular migraines although he has never had a common migraine or classic migraine with headache. He relays a history of suspected carpal tunnel syndrome affecting the right hand and complains of chronic numbness of the right hand and wrist with some associated wrist discomfort. 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 He did have a tele-stroke consultation during his assessment in the emergency department. However, he was not considered an appropriate candidate for administration of TPA. It looks like he presented outside of the window for therapeutic intervention and his deficits may have been mild. The tele-stroke consultation report is not available at this time. He was admitted to the [facility] for further evaluation and management. I reviewed the results of his extensive imaging including CT of the head, brain MRI, as well as MR angiography of the head and neck. In short, his brain MRI was negative for any evidence of acute or subacute infarct and his angiography was unremarkable. Imaging described in further detail below. Allergies Allergy/AdvReac Type Severity Reaction Status Date / Time No Known Drug Allergies Allergy Verified 07/12/20 13:16 Home Medications Home Medications Medication Instructions Recorded Confirmed Type atorvastatin 10 mg tablet 10 mg PO QPM #90 tab 12/06/19 07/12/20 Rx lisinopril 5 mg tablet 5 mg PO QAM #90 tab 12/06/19 07/12/20 Rx lancets 33 gauge #100 ea 01/24/20 06/01/20 Rx metformin 1,000 mg tablet 1,000 mg PO BID #180 tab 01/24/20 07/12/20 Rx pen needle, diabetic 31 gauge x #30 ea 01/24/20 06/01/20 Rx /" sertraline 100 mg tablet 150 mg PO QPM #45 tab 01/24/20 07/12/20 Rx Accu-Chek Guide Glucose Meter #1 ea NS 01/27/20 06/01/20 Rx Accu-Chek Guide test strips #100 ea NS 01/27/20 06/01/20 Rx Dexcom G6 Crown Attacher #1 ea NS 03/02/20 06/01/20 Rx Dexcom G6 Sensor #3 ea NS 03/02/20 06/01/20 Rx Dexcom G6 Transmitter #1 ea NS 03/02/20 06/01/20 Rx omeprazole 20 mg tablet,delayed 20 mg PO QPM #90 tab 03/30/20 07/12/20 Rx release liraglutide [Victoza 3-Sharan] 1.8 mg SQ QDD 07/12/20 07/12/20 History Patient History Medical History Anxiety BPH (benign prostatic hyperplasia) Chronic iritis Coronary artery calcification seen on CAT scan GERD (gastroesophageal reflux disease) Hyperlipidemia Hypertension Kidney stones Nonalcoholic fatty liver disease Obesity Uncontrolled type 2 diabetes mellitus with complication Wrist fracture, left Surgical History History of colonoscopy (~09/2012) History of esophagogastroduodenoscopy (EGD) (~12/2018) history of varices History of lithotripsy History of tooth extraction Family History Father Family history of diabetes mellitus Hypertension Coronary heart disease Polymyalgia rheumatica Mother Hyperthyroidism Brother , age 42 Alcoholic cirrhosis Sister No problems noted. 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/[employer] How many Children do You have: 2 How many Children do You have Comment: 1 daughter, 1 son Feels Safe at Home: Yes Review of Systems Constitutional: no fever and no chills Eyes: as per Subjective / HPI; no blind spots, no diplopia and no eye pain Patient relays a history of uveitis Ear, Nose, Mouth, Throat: no hearing loss Respiratory: no cough and no dyspnea Cardiovascular: no chest pain and no palpitations Gastrointestinal: no nausea and no vomiting Genitourinary: no urinary incontinence Musculoskeletal: no joint pain and no myalgia Integumentary: no rash and no lesions Neurologic: as per Subjective / HPI, + localized weakness, + loss of sensation and + headache(s); no gait abnormality, no tremor(s), no seizure-like activity, no dizziness, no syncope, no abnormal speech and no confusion Psychiatric: no depression and no anxiety Hematologic / Lymphatic: no easy bleeding and no easy bruising Exam (Neuro) Constitutional: well developed and well nourished; no acute distress Eyes: normal visual lewis by confrontation, PERRL, normal accommodation and EOM intact bilaterally; no fundoscopic abnormality, no nystagmus and no papilledema Cardiovascular: Vessels: normal carotid upstroke; no carotid bruit Neurologic: Oriented to:: Person, Place and Time Memory: Short Term Intact and Remote Intact Attention: Span Intact and Concentration Intact Language: Naming Objects and Repeating Phrases Speech Fluency: negative Dysarthria Speech Aphasia: negative Aphasia Fund of Knowledge: Current Events, Past History and Vocabulary Cranial Nerves: Normal II (Visual lewis full to confrontation, visual acuity normal), V (Facial sensation intact), VIII (Hearing intact), IX, X (Palate elevates to midline), XI (Shoulder shrug intact) and XII (Tongue protrudes to midline); Abnorm III, IV, (Pupils equal round reactive to light and accommodation, eye movements normal. Patient does have mild weakness of eyelid closure for the left eye only.) and VII (There is a mild to moderate right lower facial droop noted.) Motor Strength: Normal Lower Extremities and Normal Upper Extremities; negative Pronator Drift Motor Tone: Normal Lower Extremities and Normal Upper Extremities Muscle Bulk/Involuntary Movements: No Involuntary Movements; negative Muscle Atrophy Sensation: Light Touch Intact, Pain/Temperature Intact, Vibration Intact and Proprioception Intact Coordination: Normal; negative Limited Balance, Dysdiadochokinesia, Finger-Nose Abnormal and Heel-Roach Abnormal Deep Tendon Reflexes: Rt Triceps: 2+, Lt Triceps: 2+, Rt Biceps: 2+, Lt Biceps: 2+, Rt Brachioradialis: 2+, Lt Brachioradialis: 2+, Rt Patellar: 2+, Lt Patellar: 2+, Rt Ankle: 2+ and Lt Ankle: 2+ Special Tests: negative Babinski Present Gait: Normal Station and Gait Results & Data ([facility]) Vital Signs (Past 12 Hours) Vital Signs Temp Pulse Pulse Resp BP BP Pulse Ox 07/12/20 17:23 36.8 C 70 71 14 122/79 96 07/12/20 16:30 73 22 128/85 97 07/12/20 16:00 78 16 132/89 96 07/12/20 15:43 72 14 117/80 97 07/12/20 14:25 96 07/12/20 13:16 72 96 07/12/20 13:15 74 113/78 97 07/12/20 13:06 74 120/78 97 07/12/20 13:01 72 97 07/12/20 12:57 74 97 07/12/20 12:53 71 20 135/86 98 Pulse Ox 07/12/20 17:23 96 07/12/20 16:30 07/12/20 16:00 07/12/20 15:43 07/12/20 14:25 07/12/20 13:16 07/12/20 13:15 07/12/20 13:06 07/12/20 13:01 07/12/20 12:57 07/12/20 12:53 Laboratory Results WBC 5.59, hemoglobin 14.5, hematocrit 42.3, platelet count 91, ESR 13, sodium 136, potassium 4.0, BUN 15, creatinine 0.97, glucose 233, calcium 9.2, magnesium 1.8, troponin less than 0.015, CRP less than 0.29, vitamin B12 level 667, homocystine pending, triglycerides 271, cholesterol 158, LDL 70, VLDL 54, HDL 34, Lyme IgG and IgM serology negative Diagnostic Findings CT of the head negative for hemorrhage or acute process. MRI of the brain negative for acute or subacute infarct. No significant parenchymal abnormality observed. Cerebellar tonsils are low-lying. MR angiography of the head unremarkable. No aneurysm, dissection, or high-grade stenosis or proximal branch occlusion. MR angiography of the neck negative, no aneurysm, dissection, high-grade stenosis or occlusion. I reviewed the images as well as the radiologist's interpretation of these tests. Coding Level of Care Code 09649 Inpt Consult Level 5 Diagnoses Stroke-like symptoms R29.90 Facial droop R29.810 Vertebrobasilar circulation transient ischemic attack G45.0
[2020-07-12] MEDS ORDERED: ATORVASTATIN 10 MG TAB PO SCH (21:00)
[2020-07-12] MEDS: SERTRALINE HCL 50 MG TABLET PO SCH (21:34)
[2020-07-12] MEDS: INSULIN GLARGINE SOLOSTAR 100 UNITS/ML 3 ML PEN SC SCH (21:35)
--- NOTE | 2020-07-13 00:02 | Electrocardiogram Report ---
Test Reason : Blood Pressure : / mmHG Vent. Rate : 069 BPM Atrial Rate : 069 BPM P-R Int : 150 ms QRS Dur : 100 ms QT Int : 400 ms P-R-T Axes : 039 004 049 degrees QTc Int : 428 ms Normal sinus rhythm Normal ECG When compared with ECG of 26-OCT-2009 05:31, No significant change was found Confirmed by Adrien Roger ([id number]) on 07/13/2020 12:02:41 AM Referred By: Confirmed By:Adrien Roger
[2020-07-13] MEDS: SODIUM CHLORIDE 0.9% 1000ML 1,000 ML IV SCH ×2 (03:51→14:49)
[2020-07-13] MEDS ORDERED: PNEUMOCOCCAL Polysaccharide Vaccine 25mcg/0.5mL vial/Syr IM ONE (08:00)
--- NOTE | 2020-07-13 08:10 | Hospitalist Progress Note ---
Date of Service July 13, 2020 Assessment & Plan (1) TIA (transient ischemic attack): Patient presented with right sided facial droop and b/l lower facial numbness (adeline-oral) starting this am. He had had an occipital headache yesterday evening that is now resolved. In addition he complained of left mandibular pain starting today. Patient admits to being under significant amount of stressors He underwent telehealth stroke evaluation by [facility] and TPA was not administered nor advised. MRI brain along with MRA head/neck were recommended. Aspirin 324mg po x 1 was given. MRI brain was negative for acute/subacute stroke Repeat MRI 07/13/2020 IMPRESSION: 1. No acute intracranial findings 2. No evidence of intracranial mass 2. 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 I added Valtrex therapy as the patient did feel he may have had a recent oral herpetic lesion and does have a history of having chickenpox as a youth without the chickenpox vaccine acetylcholine receptor AB , binding AB and modulator AB pending (2) Uncontrolled type 2 diabetes mellitus with complication: a1c 8.6 Lantus 8 units at HS. novolog sliding scale - correction factor 30; carb ratio 1:10. hold metformin. (3) Hypertension: hold JUD to allow permissive HTN in the setting of above but pressures have been low without it (4) Hypercholesterolemia: continue statin escalate dose to 40 mg (5) Obstructive sleep apnea syndrome, moderate: ok to use home CPAP machine (6) Nonalcoholic fatty liver disease: follows with Dr Wray, [facility]. known varices on prior EGD. cont PPI. Dr. Daniels checked with on-call [facility] and ok to use low-dose aspirin for secondary prevention. (7) Thrombocytopenia: likely 2nd to liver disease. cannot rule out low-grade, chronic ITP. b12 level wnl. (8) Obesity (BMI 30-39.9): BMI 30.2 (9) Anxiety: cont SSRI (10) Esophageal varices: history of such, 2nd to NAFLD. (11) DVT prophylaxis: platelets are 90s hold off on lovenox or heparin for now SCDs at this time Patient is being followed by neurology inpatient at this time Admission and Anticipated Discharge Date Admission Date: July 12, 2020 Subjective Patient was seen in the presence of his . I did have a in-depth discussion with neurology regarding this patient prior to seeing him. He remains with a left facial droop with some crossover right-sided symptoms. He otherwise has no complaints or problems he cannot approximate his left eyelids he is having no trauma to the inside corner of his mouth when chewing Review of Systems Review of Systems: Mild distress and fatigue no headache, blurry or double vision left eye is becoming slightly dry Some speech and chewing issues related to his mouth perioral numbness, no swallowing issues no chest pain, pressure or palpitations no shortness of breath, cough or wheezes no abdominal pain, nausea or vomiting, diarrhea or constipation no dysuria, hematuria or frequency no focal joint pain or swelling no back pain, CVA tenderness or radicular pain no bruising, bleeding or rashes Left facial weakness with some perioral numbness and right forehead issues no complaints or anxiety or depression. Results & Data Results & Data ([facility]) Vital Signs (Past 12 Hours) Vital Signs Temp Pulse Pulse Resp BP BP Pulse Ox 07/13/20 07:40 97.5 F L 66 18 129/83 98 07/13/20 07:07 61 07/13/20 04:43 97.2 F L 62 20 119/68 98 07/13/20 01:19 71 07/12/20 23:00 98.2 F 73 20 105/64 96 07/12/20 20:07 97.9 F 83 20 123/73 97 PG Care Time/CCT Total # of Minutes Spent Total Time Spent with Patient: Total time spent is greater than 50% in coordination of care (as documented) at patient's floor/unit and/or counseling patient: Coding Level of Care Code 76230 Subseq Hosp Care Lvl 3 Diagnoses TIA (transient ischemic attack) G45.9 Uncontrolled type 2 diabetes mellitus with complication E11.8; E11.65 Hypertension I10 Hypertension type: essential hypertension Hypercholesterolemia E78.00 Obstructive sleep apnea syndrome, moderate G47.33 Nonalcoholic fatty liver disease K76.0 Thrombocytopenia D69.6 Obesity (BMI 30-39.9) E66.9 Anxiety F41.9 Esophageal varices I85.10 Esophageal varices bleeding: without bleeding Esophageal varices type: secondary DVT prophylaxis Z29.9 (1) Esophageal varices Esophageal varices bleeding: without bleeding Esophageal varices type: secondary Qualified Code(s): I85.10 - Secondary esophageal varices without bleeding (2) Hypertension Hypertension type: essential hypertension Qualified Code(s): I10 - Essential (primary) hypertension
[2020-07-13] MEDS ORDERED: ENOXAPARIN INJ 40 MG/0.4 ML SYR SQ SCH (09:00)
[2020-07-13] MEDS: INSULIN ASPART 100 UNITS/ML 3 ML PEN SC SCH ×5 (09:15→20:48)
[2020-07-13] MEDS ORDERED: GADOBUTROL 65ML VIAL IV ONE (09:27)
[2020-07-13 09:33] LABS: BUN Creatinine Ratio 14.4 (10-20); Calcium 8.4 mg/dl (8.5-10.1); Creatinine Clr Calc Pharmacy 108.9 ml/min; Est GFR (African American) 105.9; Est GFR (Non-African American) 91.4
--- NOTE | 2020-07-13 09:45 | Magnetic Resonance Report ---
MRI OF THE BRAIN WITHOUT AND WITH IV CONTRAST CLINICAL HISTORY: Right facial droop and mouth numbness. Worsening symptoms. Possible brainstem strok e. COMPARISON STUDY: MRI dated 07/12/2020 TECHNIQUE: MRI of the brain was performed from the vertex to the skull base utilizing various T1 and T2 weighted sequences. Following the IV administration of 10 mL of Gadavist contrast, additional enha nced images were obtained. FINDINGS: Sagittal T1, axial diffusion, proton density and T2 weighted axial, coronal FLAIR, and pre and post a xial T1-weighted images were acquired. These were supplemented with post gadolinium coronal T1 weight ed images. No intra or extra-axial mass lesions are visualized. Axial diffusion-weighted images reveal no evidence of acute or subacute infarction. There is no evidence of ventricular dilatation. Proton density T2-weighted and FLAIR images reveal minimal foci of increased T2 signal within the whi te matter, likely on a small vessel basis. A focus of increased T2 signal within the right pontomedul radha junction likely represents a prominent perivascular space. This remains unchanged There are no abnormal flow voids. There is no evidence of pathologic enhancement. IMPRESSION: 1. No acute intracranial findings 2. No evidence of intracranial mass 2. No evidence of acute or subacute infarction ACT 112: Negative or not required by law. Electronically signed by: Chin Kumari M.D. 07/13/2020 9:43 AM
[2020-07-13] MEDS: PANTOprazole 40 MG TAB PO SCH (10:07)
[2020-07-13] MEDS: ASPIRIN 81 MG ECTAB PO SCH (10:08)
[2020-07-13 10:18] LABS: Estimated Average Glucose 200 mg/dl; Hemoglobin A1C 8.6 % (4.5-5.6)
--- NOTE | 2020-07-13 10:32 | Neurology Progress Note ---
Date of Service July 13, 2020 Assessment & Plan (1) Stroke-like symptoms: (2) Facial droop: (3) Vertebrobasilar circulation transient ischemic attack: Patient has the acute onset left-sided facial weakness with some dysesthesias. This morning it is clear that he has complete peripheral weakness including forehead, eye, and at the mouth. 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 He does have dysesthesias but this can go along with Devine's palsy early in the course. He has no other obvious cranial nerve deficit and no other focal neurologic signs, meningeal signs, or encephalopathy. Repeat MRI of the brain was unremarkable with and without contrast. I am not convinced that this has anything to do with vertebral basilar insufficiency or a brainstem stroke. 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 Recommendations: 1. Consider Lyme Western blot and checking for Babesiosis, ehrlichiosis, Bartonella, and anaplasmosis 2. Consider doxycycline twice daily for 3 weeks. 3. Medrol Dosepak 4. I am not certain he needs Valtrex for 1 week as this likely is not a Early Branch Jenkins syndrome or related to zoster. 5. follow up with Dr. Heard as an outpatient and I see no need for additional neurologic tests currently. We could consider other testing ( such as an LP) depending on his clinical course. Overall, I spent a total of 40 minutes with this case including review of records, review of MRI films, direct evaluation the patient bedside, and discussing the case with this patient at bedside, RN at bedside, and Dr. Almonte, including differential diagnosis and treatment options. Admission and Anticipated Discharge Date Admission Date: July 12, 2020 Subjective Patient still has the inability to move the left corner of his mouth. He has dysesthesias with some numbness around his mouth on both sides and feels that he can't sense pin as much on the left cheek as he can the right. He can move the right side of his mouth but he feels that it is weak. He feels that closing his eye on the left is weak as well. He has no double vision or loss of vision. He has no swallowing or taste problems. Food gets stuck on the left side of his mouth. He denies weakness or numbness in the arms or legs and has no pain otherwise. He does not have a headache but does have some discomfort underneath the ear on the left by the corner of the jaw. His balance is normal and he has no incontinence. All this started at 0930 yesterday July 12. Lab showed elevated glucose and triglycerides. Lyme antibody titers were normal. He is afebrile and blood pressure was 129/83. Follow-up MRI of the brain this morning with without contrast was entirely within normal limits without any new stroke or brainstem inflammation or tumor. Results & Data ([facility]) Vital Signs (Past 12 Hours) Vital Signs Temp Pulse Pulse Resp BP BP Pulse Ox 07/13/20 07:40 36.4 C L 66 18 129/83 98 07/13/20 07:07 61 07/13/20 04:43 36.2 C L 62 20 119/68 98 07/13/20 01:19 71 07/12/20 23:00 36.8 C 73 20 105/64 96 Exam (Neuro) Physical Exam: He is awake and alert. Speech is without aphasia or dysarthria. He repeats test phrases well. Mood and affect are normal and appropriate. Thought processes are intact. Extraocular eye muscles are intact without nystagmus. Pupils are 4 millimeters bilaterally and reactive to light. Palate moves well and is symmetrical. Tongue is midline. He cannot hold air in his cheeks and cannot move left side of his mouth voluntarily. Eye closure on the left is weak and forehead on the left is weak. He has some decreased sensation in the left cheek compared to the right. There is tenderness at the corner of the jaw under the ear on the left. Sternocleidomastoid trapezius strength is normal bilaterally. Tongue strength is symmetrical bilaterally. Coordination is normal in the arms without tremor ataxia. Motor strength is symmetrical in all 4 limbs and reflexes 1/4 throughout. PG Care Time/CCT Total # of Minutes Spent Total Time Spent with Patient: Total time spent is greater than 50% in coordination of care (as documented) at patient's floor/unit and/or counseling patient: Coding Level of Care Code 38757 Subseq Hosp Care Lvl 3 Diagnoses Stroke-like symptoms R29.90 Facial droop R29.810 Vertebrobasilar circulation transient ischemic attack G45.0 Time Spent (min) 40
[2020-07-13] MEDS ORDERED: predniSONE 20 MG TAB PO ONE (11:00)
[2020-07-13] MEDS ORDERED: DOXYCYCLINE HYCLATE 100 MG CAP PO ONE (11:00)
--- NOTE | 2020-07-13 12:14 | XCELERA ---
[id number]
[2020-07-13] MEDS: OXYCODONE HCL IR 5 MG TAB (IMMEDIATE RELEASE) PO PRN (16:00)
[2020-07-13] MEDS: LIDOCAINE 5% 1 PATCH TD SCH (16:01)
[2020-07-13] MEDS: INSULIN GLARGINE SOLOSTAR 100 UNITS/ML 3 ML PEN SC SCH (20:44)
[2020-07-13] MEDS: VALACYCLOVIR HCL 500 MG TABLET PO SCH (20:46)
[2020-07-13] MEDS: DOXYCYCLINE HYCLATE 100 MG CAP PO SCH (20:46)
[2020-07-13] MEDS: SERTRALINE HCL 50 MG TABLET PO SCH (20:47)
[2020-07-13] MEDS ORDERED: ATORVASTATIN 40 MG TAB PO SCH (21:00)
[2020-07-13] MEDS ORDERED: VALACYCLOVIR HCL 500 MG TABLET PO SCH (21:00)
[2020-07-14] MEDS: SODIUM CHLORIDE 0.9% 1000ML 1,000 ML IV SCH ×2 (00:42→10:39)
[2020-07-14 07:34] LABS: BUN Creatinine Ratio 16.4 (10-20); Calcium 8.6 mg/dl (8.5-10.1); Creatinine Clr Calc Pharmacy 107.8 ml/min; Est GFR (African American) 105.9; Est GFR (Non-African American) 91.4
[2020-07-14] MEDS: PANTOprazole 40 MG TAB PO SCH (08:43)
[2020-07-14] MEDS: ASPIRIN 81 MG ECTAB PO SCH (08:43)
[2020-07-14] MEDS: VALACYCLOVIR HCL 500 MG TABLET PO SCH (08:44)
[2020-07-14] MEDS: DOXYCYCLINE HYCLATE 100 MG CAP PO SCH (08:45)
[2020-07-14] MEDS: LIDOCAINE 5% 1 PATCH TD SCH (08:46)
[2020-07-14] MEDS: INSULIN ASPART 100 UNITS/ML 3 ML PEN SC SCH ×2 (08:48→13:27)
[2020-07-14] MEDS ORDERED: STROKE PATIENT DISCHARGE STA (11:28)
[2020-07-14] MEDS: OXYCODONE HCL IR 5 MG TAB (IMMEDIATE RELEASE) PO PRN (14:21)
--- NOTE | 2020-07-14 18:31 | Discharge Summary ---
Date of Service July 14, 2020 Admission HPI Per Admitting Provider 60yo male with history of HTN, T2DM, ORESTES, BPH and hyperlipidemia who presents with posterior/occipital headache starting last night for which he took advil. Went to sleep, woke up about 8/830am, and felt fine. The headache that he had had the night before was gone. Then, about 0930, he tried to brush his teeth but noticed difficulty with doing so. He had BILATERAL numbness of the lower face (not unilateral). He then noted right facial droop. He tried to drink with a straw and had difficulty with such. Tried to eat breakfast but had hard time doing so. No fevers or chills. No motor weakness in the arms/legs. No balance troubles or gait issues. No visual loss. No vertigo. He has noted an ache in his left mandible today as well. At 1230 states he walked into the dining room and he looked unwell to her. Speech was slightly slurry and his noted the right-sided facial droop. He was talking slowly as well. states he has been under tremendous stress at work at [employer]. He has had migraines in the past ("ocular migraines") about 2-3 years ago. Denies any obvious tick bites but he works avidly in his yard/garden. Principal Diagnosis Devine's Palsy Discharge Exam Constitutional WD/WN, vitals as above Eyes EOM intact bilaterally; no conjunctival abnormality ENMT external ear and nose normal, oropharynx normal Neck trachea midline, no thyromegaly normal visual inspection Respiratory normal respiratory effort, lungs clear to auscultation no respiratory distress Cardiovascular RRR, no murmur, no edema Gastrointestinal (Abdomen) Inspection/Auscultation: abdomen normal to inspection; abdomen not distended Musculoskeletal no cyanosis or clubbing, extremities motor strength 5/5 Skin no rashes, warm and dry Neurologic moves all extremities and awake Cranial Nerves: + abnormal facial strength (Left-side facial droop) Psychiatric Orientation: alert, oriented to person and cooperative Discharge Data Allergies Allergy/AdvReac Type Severity Reaction Status Date / Time No Known Drug Allergies Allergy Verified 07/12/20 13:16 Consultations 07/12/20 14:26 ED Decision to Admit Stat 07/12/20 17:23 Consult Neurology Routine Ordered Studies 07/12/20 12:44 CT head/brain wo con Stat 07/12/20 14:20 MR angio head wo con Stat MR angio neck wo con Stat MR brain wo con Stat 07/13/20 08:00 MR brain wo/w con Routine Hospital Course (1) Devine's palsy: Left-sided facial droop. Seen by neurology with thought that it is Devine's palsy. - Given risk factors for tick-borne disease, empirically treating for doxycycline while we wait for Lyme PCR, anaplasmosis, ehrlichiosis, babesiosis. - Given uveitis concern, autoimmune diseases are a concern. In particular, Heerfordts syndrome (facial palsy, parotid swelling, uveitis and fever in sarcoidosis) could be considered, though he had no fever or parotid swelling. - Sent JUD level, ANA12, ANCA. - Will follow up with [facility], Dr. Garcia for uveitis. Follow up with PCP and consider rheumatology referral if any labs concerning. - Behcet's also a consideration given the aphthous oral ulcer, uveitis, and Devine's Palsy. (2) Uveitis: Had several episodes with last about 5 years ago. Reports he was tested for systemic disease, without anything definitive. - On day of discharge, he had worsening eye pain and pressure in the right eye. 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 The patient was discharge to see Dr. Garcia for consideration of steroid eye drops. (3) TIA (transient ischemic attack): Initially thought to be TIA. Two negative MRI brains. Of note, this was determined NOT to be a TIA. Patient presented with right sided facial droop and b/l lower facial numbness (adeline-oral) starting this am. He had had an occipital headache yesterday evening that is now resolved. In addition he complained of left mandibular pain starting today. Patient admits to being under significant amount of stressors He underwent telehealth stroke evaluation by [facility] and TPA was not administered nor advised. MRI brain along with MRA head/neck were recommended. Aspirin 324mg po x 1 was given. MRI brain was negative for acute/subacute stroke. Repeat MRI 07/13/2020 IMPRESSION: 1. No acute intracranial findings 2. No evidence of intracranial mass 2. No evidence of acute or subacute infarction Echocardiogram 07/13/2020 shows normal ejection fraction no significant valvular pathology and no evidence of intra-arterial shunt after bubble study. Initial evaluation was unrevealing for secondary causes of this neurological presentation and after further review Dr. Aponte feels this is a Devine's palsy with some atypical features at this point time he recommends instituting prednisone therapy treating for seronegative Lyme disease. I added Valtrex therapy as the patient did feel he may have had a recent oral herpetic lesion and does have a history of having chickenpox as a youth without the chickenpox vaccine acetylcholine receptor AB , binding AB and modulator AB pending (4) Uncontrolled type 2 diabetes mellitus with complication: a1c 8.6 Lantus 8 units at HS. novolog sliding scale - correction factor 30; carb ratio 1:10. hold metformin. (5) Hypertension: BP normal here. Continue home meds. (6) Hypercholesterolemia: continue statin escalate dose to 40 mg (7) Obstructive sleep apnea syndrome, moderate: ok to use home CPAP machine (8) Nonalcoholic fatty liver disease: follows with Dr Wray, [facility]. known varices on prior EGD. cont PPI. Dr. Daniels checked with on-call [facility] and ok to use low-dose aspirin for secondary prevention. (9) Thrombocytopenia: likely 2nd to liver disease. cannot rule out low-grade, chronic ITP. b12 level wnl. (10) Obesity (BMI 30-39.9): BMI 30.2 (11) Anxiety: cont SSRI (12) Esophageal varices: history of such, 2nd to NAFLD. (13) DVT prophylaxis: platelets are 90s hold off on lovenox or heparin for now SCDs at this time Patient is being followed by neurology inpatient at this time Total Time Total Time Spent Total Time Spent (In Minutes): 35 Discharge Plan Discharge Items Patient Disposition: Home - Self-Care Reason For Visit: FACIAL NUMBNESS,FACIAL DROOP Discharge Diagnosis: Devine's palsy & concern for uveitis Activity: Resume your previous activity Non-emergency contact: Primary Care Provider and Neurologist Call non-emergency contact if: your symptoms worsen Follow-up/Referrals: Gopi Heard MD [Physician] - (Please see Dr. Heard in 3-4 weeks if symptoms have not improved.) ,Ady Maldonado MD [Primary Care Provider] - Diet: Carb Consistent or DM2 and Heart Healthy Addtl Attending Provider Instructions: Mr. Jung, You were admitted to the hospital with concern for a stroke due to left facial drooping. However, we do not think that this was related to a stroke or TIA ("mini-stroke"). We feel this is something called Devine's Palsy which is an irritation of the 7th cranial nerve. This can be caused by tick illnesses (namely Lyme disease), other autoimmune issues, or it can be idiopathic (meaning we can't figure out what causes it.). We are sending you out on doxycycline to treat you for any tick-borne illness. You will take this for 3 weeks two times per day. Your first dose at home will be tonight before bed. We are also sending you home on a Medrol dose-Sharan of steroids. I think it is especially important to monitor your blood sugars while on the steroids. You may need to reach out to [facility] or the Endocrinology office if your sugars get too high. Generally, your sugars seem to be in good control, and I would hate for it to cause issues. Luckily, this is a fairly modest steroid dose, so hopefully will not cause many problems. Start this dose-sharan tomorrow with breakfast. Finally, please see Dr. Garcia this afternoon at 4:30pm at the [facility] office to check for uveitis. Pending Studies at Discharge: No Stand-Alone Forms: [facility], Smoking Cessation Medications and DC Order Prescriptions: New doxycycline hyclate 100 mg Capsule 100 mg PO BID Qty: 42 RF: 0 methylprednisolone [Medrol (Sharan)] 4 mg tablets,dose pack See Rx Instructions .ROUTE .COMPLEX Qty: 21 RF: 0 oxycodone 5 mg tablet 5 mg PO Q6H PRN (Reason: pain) Qty: 20 RF: 0 Continued atorvastatin [Lipitor] 10 mg tablet 10 mg PO QPM Qty: 90 RF: 3 lisinopril 5 mg tablet 5 mg PO QAM Qty: 90 RF: 3 (DME) Accu-Chek Guide test strips Strip See Rx Instructions .ROUTE .MEDSUPPLY Qty: 100 RF: 3 (DME) blood-glucose meter [Accu-Chek Guide Glucose Meter] Misc See Rx Instructions .ROUTE .MEDSUPPLY Qty: 1 RF: 3 omeprazole 20 mg tablet,delayed release (DR/EC) 20 mg PO QPM Qty: 90 RF: 3 (DME) Dexcom G6 Erp Manager Misc See Rx Instructions .ROUTE .MEDSUPPLY Qty: 1 RF: 0 (DME) Dexcom G6 Sensor Device See Rx Instructions .ROUTE .MEDSUPPLY Qty: 3 RF: 11 (DME) Dexcom G6 Transmitter Device See Rx Instructions .ROUTE .MEDSUPPLY Qty: 1 RF: 3 sertraline 100 mg tablet 150 mg PO QPM Qty: 45 RF: 5 (DME) lancets [OneTouch Delica Lancets] 33 gauge misc See Dose Instructions .ROUTE .MEDSUPPLY Qty: 100 RF: 3 metformin 1,000 mg tablet 1,000 mg PO BID Qty: 180 RF: 3 (DME) pen needle, diabetic [BD Ultra-Fine Mini Pen Needle] 31 gauge x 3/16" needle See Dose Instructions .ROUTE .MEDSUPPLY Qty: 30 RF: 5 Victoza 3-Sharan 0.6 mg/0.1 mL (18 mg/3 mL) pen injector 1.8 mg SQ QDD RF: 0 Discharge Orders: Discharge Order (Routine); Ordered 07/14/20 Ordered By: Kael Alexandre Admission Data Admit Date/Time: 07/12/20 17:08 Attending Provider: Kael Alexandre Admit Provider: Pierce Daniels Primary Care Provider: Ady Grimm Other Providers: Gopi Heard ; Kael Alexandre Other Interventions: Discharge Summary Assessment (RN) Last Done: 07/14/20 13:39 Coding Level of Care Code D/C Day Management >30 mins Diagnoses Devine's palsy G51.0 Uveitis H20.9 TIA (transient ischemic attack) G45.9 Uncontrolled type 2 diabetes mellitus with complication E11.8; E11.65 Hypertension I10 Hypertension type: essential hypertension Hypercholesterolemia E78.00 Obstructive sleep apnea syndrome, moderate G47.33 Nonalcoholic fatty liver disease K76.0 Thrombocytopenia D69.6 Obesity (BMI 30-39.9) E66.9 Anxiety F41.9 Esophageal varices I85.10 Esophageal varices type: secondary Esophageal varices bleeding: without bleeding DVT prophylaxis Z29.9
[2020-07-17 14:23] LABS: Ehrlichia chaff DNA Bld Not Detected (Not Detected)
[2020-07-18 16:44] LABS: Acetylcholine Recep Modulating 13; Acetylcholine Recept Blocking <15 (<15); Receptor Binding Ab <0.30 nmol/L
[2020-07-21 21:41] LABS: ANCA Screen Negative (Negative); Angiotensin Converting Enzyme 20 U/L (9-67); Anti Cardiolipin Ab IgG <14 GPL; Anti Cardiolipin Ab IgM <12 MPL; Anti Nuclear Antibody Screen NEGATIVE (NEGATIVE); Anti-Cardiolipin Ab IgA <11 APL; Anti-Centromere Ab <1.0 NEG AI (<1.0 NEG); Anti-SS-A <1.0 NEG AI (<1.0 NEG); Anti-SS-B <1.0 NEG AI (<1.0 NEG); Chromatin Antibody <1.0 NEG AI (<1.0 NEG); Complement C3 141 mg/dL (82-185); DNA ds Crithidia NEGATIVE (NEGATIVE); Microsomal Ab 3 IU/mL (<9); Myeloperoxidase Ab <1.0 AI (<1.0); Proteinase-3 AB <1.0 AI (<1.0); RNP Antibody <1.0 NEG AI (<1.0 NEG); Scleroderma Anti Scl-70 Ab <1.0 NEG AI (<1.0 NEG); Sm Antibody <1.0 NEG AI (<1.0 NEG)
== END 2020-07-14 14:50 | disposition home or self-care (01) | DRG 74 ==
LOC: ED 12:43 → INTOOBSV 15:57 → 2N 15:57 → SUATTDRO 15:57 → 2N 16:49 → SUATTDRO 17:08

== ENCOUNTER 2021-04-24 12:54 | Inpatient (IN) ==
[2021-04-24] MEDS ORDERED: ASPIRIN 81 MG CHEW PO STA (13:24)
--- NOTE | 2021-04-24 13:29 | Emergency Department Note ---
Impression & Plan Chest pain, Pericarditis ED Provider Note Provider: Clifford Mejia MD DATE OF SERVICE: 04/24/2021 CHIEF COMPLAINT: Chest pain HISTORY OF PRESENT ILLNESS: Patient is a 61-year-old gentleman with a history of type 2 diabetes, hypertension, coronary calcifications on CT scan, and fatty liver disease presenting here today with his reporting chest discomfort. Evidently states he woke around 3 AM overnight and experiencing chest discomfort likely worsened if he lay down. States when he sat up in bed it got better. Took some naproxen and then spent the night sleeping in a chair. Woke up and pain improved from an 8 out of 10 to about a 2 out of 10. Told his about this who insisted he come here for evaluation. Denies difficulty breathing or abdominal pain or nausea. 19 dizziness or fainting. Denies any trauma. Denies chest tenderness but states when he takes a deep breath it does hurt a little bit in his mid anterior chest. Some slight radiation through to the back. Patient reports he had a CT scan with some coronary calcifications and a stress test he believes last fall that was reassuring. Denies a personal history of cardiac disease but does report a family history of cardiac disease. Patient states he has been active doing gardening the last several days and has not had any discomfort with this. Pain again is much improved when he sits forward or out. REVIEW OF SYSTEMS: A total of 10 review of systems was obtained and negative except as stated above in the HPI. PAST MEDICAL HISTORY: As noted above MEDICATIONS: Reviewed home medications FMH: Significant family history of cardiac disease reported SOCIAL HISTORY: Lives at home with , works for [employer], non-smoker PHYSICAL EXAM: GENERAL: alert and oriented in no acute distress on stretcher Head: normocephalic and atraumatic EYES: No injection, discharge or icterus. NECK: Trachea midline. Supple. ENT: Mucous membranes pink and moist. LUNGS: Airway patent. No retractions. Breath sounds clear with good air entry bilaterally. HEART: Regular rate and rhythm. No chest wall tenderness ABDOMEN: Soft and non-tender, without guarding or rebound. SKIN: Acyanotic, warm, dry, without rashes EXTREMITIES: Without swelling, tenderness or deformity NEUROLOGICAL: No focal deficits. No aphasia. No facial droop or slurred speech. EK bpm normal sinus rhythm. No PVC or PAC. No T wave inversions noted. Some slight lead III and aVF ST elevation noted. QTc 451. EKG#2: 74 bpm normal sinus rhythm no PVC or PAC. No T wave inversions. Persistent not significantly changed lead III and aVF ST elevation with normal QTC. CONTINUOUS CARDIAC MONITORING: was ordered and showed a heart rate of 70s bpm in normal sinus rhythm Patient's laboratory studies and imaging reviewed. Differential includes Cardiac ischemia, aortic dissection, pulmonary embolism, pneumothorax, pneumonia, pericarditis, myocarditis, esophageal rupture, GERD, cholecystitis, pancreatitis, musculoskeletal, as well as other pathologies. IMPRESSION/MEDICAL DECISION MAKING: Patient is pulling of chest discomfort positional in nature much improved when sitting up and forward. Little bit pleuritic but not reproducible pressing on the chest. Not tachycardic or hypotensive. Low suspicion for PE. Doubt aortic dissection. EKG and second EKG was completed showing some questionable inferior ST elevation without reciprocal changes. Troponin is negative more than 8 hours from the onset of symptoms and pain is minimized now compared to earlier. Recent nonexertional history and nonexertional now. Patient received some aspirin here. Given the positional nature in his report strong suspicion this is pericarditis. Without reciprocal changes or very concerning cardiac story do not feel the patient needs emergent cardiac catheterization. Patient does however have some risk factors. Given this discussed with the patient and options recommended further observation here. Hospitalist was contacted. DIAGNOSIS: Chest pain, pericarditis DISPOSITION: Hospitalist will evaluate Patient was agreeable with this plan. Past Med/Surg History Medical History (Updated 04/24/21 @ 15:30 by Pierce Hart MD) Anxiety Devine's palsy BPH (benign prostatic hyperplasia) Chronic iritis Coronary artery calcification seen on CAT scan GERD (gastroesophageal reflux disease) Hyperlipidemia Hypertension Kidney stones Nonalcoholic fatty liver disease follows with Dr Cali rWay, [facility] Obesity Obstructive sleep apnea syndrome, moderate Uncontrolled type 2 diabetes mellitus with complication Wrist fracture, left Surgical History History of colonoscopy (~09/2012) History of esophagogastroduodenoscopy (EGD) (~12/2018) history of varices History of lithotripsy History of tooth extraction Family History Father Family history of diabetes mellitus Hypertension Coronary heart disease Polymyalgia rheumatica Mother Hyperthyroidism Brother , age 42 Alcoholic cirrhosis Sister No problems noted. 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[employer] How many Children do You have: 2 How many Children do You have Comment: 1 daughter, 1 son Feels Safe at Home: Yes Assistive Devices: None Allergies Allergies Allergy/AdvReac Type Severity Reaction Status Date / Time No Known Drug Allergies Allergy Verified 04/24/21 14:41 Home Meds Home Medications Medication Instructions Recorded Confirmed liver extract [Liver] 1 cap PO DAILY 04/24/21 04/24/21 Previous Rx's Medication Instructions Recorded omeprazole 20 mg tablet,delayed 20 mg PO QPM #90 tab 03/30/20 release liraglutide 0.6 mg/0.1 mL (18 mg/3 1.8 mg SQ QDD #2 syr 07/17/20 mL) subcutaneous pen injector tamsulosin 0.4 mg capsule 0.4 mg PO DAILY #10 cap 08/28/20 atorvastatin 20 mg tablet 20 mg PO DAILY #90 tab 09/16/20 lisinopril 5 mg tablet 5 mg PO QAM #90 tab 01/01/21 sertraline 100 mg tablet 200 mg PO QPM #60 tab 01/18/21 insulin degludec 100 unit/mL (3 10 unit SUBCUT DAILY 30 Days #3 ml 02/16/21 mL) subcutaneous pen metformin 1,000 mg tablet 1,000 mg PO BID #180 tab 02/22/21 Results & Data (ED) Vital Signs Vital Signs - 24 hr 04/24/21 12:58 04/24/21 13:25 04/24/21 13:26 Temperature 36.4 C L Temperature Source Temporal Artery Scan Pulse Rate 86 81 Pulse Rate [Apical] 82 Pulse Rate from SpO2 Sensor 81 Pulse Rhythm Regular Pulse Rhythm [Apical] Regular Pulse Strength Normal Respiratory Rate 16 20 18 Respiratory Effort / Characteristics Non-Labored Non-Labored Spontaneous Respiratory Depth Normal Normal Respiratory Pattern Regular Regular Blood Pressure 164/76 H 121/83 Blood Pressure [Left Arm] 121/83 Blood Pressure Mean 105 95 Blood Pressure Mean [Left Arm] 95 Blood Pressure Position Sitting Pulse Oximetry 96 98 96 Oxygen Delivery Method Room Air Room Air Sepsis Recent Fever Within 48 Hours No Sepsis New/Unexplained Change in Mental Status N/A Sepsis Action Taken by Nursing No Action Required 04/24/21 13:35 04/24/21 13:45 04/24/21 14:01 Temperature Temperature Source Pulse Rate 88 78 75 Pulse Rate [Apical] Pulse Rate from SpO2 Sensor 91 H 81 76 Pulse Rhythm Pulse Rhythm [Apical] Pulse Strength Respiratory Rate 15 18 20 Respiratory Effort / Characteristics Respiratory Depth Respiratory Pattern Blood Pressure 119/78 123/81 131/85 Blood Pressure [Left Arm] Blood Pressure Mean 91 95 100 Blood Pressure Mean [Left Arm] Blood Pressure Position Pulse Oximetry 96 94 95 Oxygen Delivery Method Sepsis Recent Fever Within 48 Hours Sepsis New/Unexplained Change in Mental Status Sepsis Action Taken by Nursing 04/24/21 14:15 04/24/21 14:30 04/24/21 14:45 Temperature Temperature Source Pulse Rate 76 78 83 Pulse Rate [Apical] Pulse Rate from SpO2 Sensor 77 79 81 Pulse Rhythm Pulse Rhythm [Apical] Pulse Strength Respiratory Rate 21 18 22 Respiratory Effort / Characteristics Respiratory Depth Respiratory Pattern Blood Pressure 129/73 120/82 112/82 Blood Pressure [Left Arm] Blood Pressure Mean 91 94 92 Blood Pressure Mean [Left Arm] Blood Pressure Position Pulse Oximetry 96 95 96 Oxygen Delivery Method Sepsis Recent Fever Within 48 Hours Sepsis New/Unexplained Change in Mental Status Sepsis Action Taken by Nursing 04/24/21 15:00 04/24/21 15:15 04/24/21 15:30 Temperature Temperature Source Pulse Rate 80 76 73 Pulse Rate [Apical] Pulse Rate from SpO2 Sensor 79 77 73 Pulse Rhythm Pulse Rhythm [Apical] Pulse Strength Respiratory Rate 19 20 Respiratory Effort / Characteristics Respiratory Depth Respiratory Pattern Blood Pressure 129/82 124/85 125/77 Blood Pressure [Left Arm] Blood Pressure Mean 97 98 93 Blood Pressure Mean [Left Arm] Blood Pressure Position Pulse Oximetry 97 96 96 Oxygen Delivery Method Sepsis Recent Fever Within 48 Hours Sepsis New/Unexplained Change in Mental Status Sepsis Action Taken by Nursing 04/24/21 15:45 04/24/21 16:00 04/24/21 16:15 Temperature Temperature Source Pulse Rate 70 71 69 Pulse Rate [Apical] Pulse Rate from SpO2 Sensor 70 73 70 Pulse Rhythm Pulse Rhythm [Apical] Pulse Strength Respiratory Rate 17 14 17 Respiratory Effort / Characteristics Respiratory Depth Respiratory Pattern Blood Pressure 121/79 114/75 Blood Pressure [Left Arm] Blood Pressure Mean 93 88 Blood Pressure Mean [Left Arm] Blood Pressure Position Pulse Oximetry 96 95 95 Oxygen Delivery Method Sepsis Recent Fever Within 48 Hours Sepsis New/Unexplained Change in Mental Status Sepsis Action Taken by Nursing 04/24/21 16:30 04/24/21 16:31 04/24/21 16:45 Temperature Temperature Source Pulse Rate 70 71 74 Pulse Rate [Apical] Pulse Rate from SpO2 Sensor 70 71 73 Pulse Rhythm Pulse Rhythm [Apical] Pulse Strength Respiratory Rate 16 15 17 Respiratory Effort / Characteristics Respiratory Depth Respiratory Pattern Blood Pressure 137/71 Blood Pressure [Left Arm] Blood Pressure Mean 93 Blood Pressure Mean [Left Arm] Blood Pressure Position Pulse Oximetry 96 95 96 Oxygen Delivery Method Sepsis Recent Fever Within 48 Hours Sepsis New/Unexplained Change in Mental Status Sepsis Action Taken by Nursing Laboratory Data Result diagrams: 04/24/21 13:16 04/24/21 13:16 Lab Results 04/24/21 04/24/21 04/24/21 Range/Units 13:16 13:16 13:16 WBC 8.26 (4.8-10.8) K/uL RBC 4.55 L (4.7-6.1) M/uL Hgb 13.7 L (14.0-18.0) g/dL Hct 40.5 L (42-52) % MCV 89.0 (80-100) fL MCH 30.1 (25-34) pg MCHC 33.8 (32-36) g/dL RDW Std Deviation 45.1 (36.4-46.3) fL RDW Coeff of Lexa 13.8 (11.5-14.5) % Plt Count 98 L (130-400) K/uL MPV 11.2 H (7.4-10.4) fL Immature Gran % (Auto) 0.1 % Neut % (Auto) 60.1 % Lymph % (Auto) 29.7 % Wayne % (Auto) 6.5 % Eos % (Auto) 3.1 % Baso % (Auto) 0.5 % Neut # (Auto) 4.96 (1.4-6.5) K/uL Lymph # (Auto) 2.45 (1.2-3.4) K/uL Wayne # (Auto) 0.54 (0.11-0.59) K/uL Eos # (Auto) 0.26 (0-0.5) K/uL Baso # (Auto) 0.04 (0-0.2) K/uL Immature Gran # (Auto) 0.01 (0.00-0.02) K/uL Platelet Estimate Decreased L (Normal) RBC Morphology Unremarkable ESR (0-20) mm/hr PT 10.3 (9.0-12.0) Seconds INR 1.0 (0.9-1.1) Sodium 136 (136-145) mmol/L Potassium 3.6 (3.5-5.1) mmol/L Chloride 104 (98-107) mmol/L Carbon Dioxide 24 (21-32) mmol/L Anion Gap 8.0 (3-11) BUN 18 (7-18) mg/dl Creatinine 0.91 (0.6-1.4) mg/dl Est Cr Clr Drug Dosing 108.0 ml/min Est GFR ( Amer) 106.5 ml/min Est GFR (Non-Af Amer) 91.9 ml/min BUN/Creatinine Ratio 19.4 (10-20) Glucose 182 H (70-99) mg/dl Calcium 9.6 (8.5-10.1) mg/dl Total Bilirubin 0.4 (0.2-1) mg/dl AST 24 (15-37) U/L ALT 48 (12-78) U/L Alkaline Phosphatase 95 (45-117) U/L Troponin I < 0.015 (0-0.045) ng/ml C-Reactive Protein 1.63 H (0-0.29) mg/dl Total Protein 8.2 (6.4-8.2) gm/dl Albumin 4.2 (3.4-5.0) gm/dl Globulin 4.0 (2.5-4.0) gm/dl Albumin/Globulin Ratio 1.1 (0.9-2) Lipase 213 (73-393) U/L Lyme Disease IgG Ab (Negative) Lyme Disease IgM Ab (Negative) COVID-19 Eval Order SARS-CoV-2 (PCR) (Negative) 0504/24/21 04/24/21 Range/Units 13:16 14:16 14:16 WBC (4.8-10.8) K/uL RBC (4.7-6.1) M/uL Hgb (14.0-18.0) g/dL Hct (42-52) % MCV (80-100) fL MCH (25-34) pg MCHC (32-36) g/dL RDW Std Deviation (36.4-46.3) fL RDW Coeff of Lexa (11.5-14.5) % Plt Count (130-400) K/uL MPV (7.4-10.4) fL Immature Gran % (Auto) % Neut % (Auto) % Lymph % (Auto) % Wayne % (Auto) % Eos % (Auto) % Baso % (Auto) % Neut # (Auto) (1.4-6.5) K/uL Lymph # (Auto) (1.2-3.4) K/uL Wayne # (Auto) (0.11-0.59) K/uL Eos # (Auto) (0-0.5) K/uL Baso # (Auto) (0-0.2) K/uL Immature Gran # (Auto) (0.00-0.02) K/uL Platelet Estimate (Normal) RBC Morphology ESR 18 (0-20) mm/hr PT (9.0-12.0) Seconds INR (0.9-1.1) Sodium (136-145) mmol/L Potassium (3.5-5.1) mmol/L Chloride (98-107) mmol/L Carbon Dioxide (21-32) mmol/L Anion Gap (3-11) BUN (7-18) mg/dl Creatinine (0.6-1.4) mg/dl Est Cr Clr Drug Dosing ml/min Est GFR ( Amer) ml/min Est GFR (Non-Af Amer) ml/min BUN/Creatinine Ratio (10-20) Glucose (70-99) mg/dl Calcium (8.5-10.1) mg/dl Total Bilirubin (0.2-1) mg/dl AST (15-37) U/L ALT (12-78) U/L Alkaline Phosphatase (45-117) U/L Troponin I (0-0.045) ng/ml C-Reactive Protein (0-0.29) mg/dl Total Protein (6.4-8.2) gm/dl Albumin (3.4-5.0) gm/dl Globulin (2.5-4.0) gm/dl Albumin/Globulin Ratio (0.9-2) Lipase (73-393) U/L Lyme Disease IgG Ab (Negative) Lyme Disease IgM Ab (Negative) COVID-19 Eval Order Covid19 at [facility] SARS-CoV-2 (PCR) NEGATIVE (Negative) 04/24/21 Range/Units 15:41 WBC (4.8-10.8) K/uL RBC (4.7-6.1) M/uL Hgb (14.0-18.0) g/dL Hct (42-52) % MCV (80-100) fL MCH (25-34) pg MCHC (32-36) g/dL RDW Std Deviation (36.4-46.3) fL RDW Coeff of Lexa (11.5-14.5) % Plt Count (130-400) K/uL MPV (7.4-10.4) fL Immature Gran % (Auto) % Neut % (Auto) % Lymph % (Auto) % Wayne % (Auto) % Eos % (Auto) % Baso % (Auto) % Neut # (Auto) (1.4-6.5) K/uL Lymph # (Auto) (1.2-3.4) K/uL Wayne # (Auto) (0.11-0.59) K/uL Eos # (Auto) (0-0.5) K/uL Baso # (Auto) (0-0.2) K/uL Immature Gran # (Auto) (0.00-0.02) K/uL Platelet Estimate (Normal) RBC Morphology ESR (0-20) mm/hr PT (9.0-12.0) Seconds INR (0.9-1.1) Sodium (136-145) mmol/L Potassium (3.5-5.1) mmol/L Chloride (98-107) mmol/L Carbon Dioxide (21-32) mmol/L Anion Gap (3-11) BUN (7-18) mg/dl Creatinine (0.6-1.4) mg/dl Est Cr Clr Drug Dosing ml/min Est GFR ( Amer) ml/min Est GFR (Non-Af Amer) ml/min BUN/Creatinine Ratio (10-20) Glucose (70-99) mg/dl Calcium (8.5-10.1) mg/dl Total Bilirubin (0.2-1) mg/dl AST (15-37) U/L ALT (12-78) U/L Alkaline Phosphatase (45-117) U/L Troponin I (0-0.045) ng/ml C-Reactive Protein (0-0.29) mg/dl Total Protein (6.4-8.2) gm/dl Albumin (3.4-5.0) gm/dl Globulin (2.5-4.0) gm/dl Albumin/Globulin Ratio (0.9-2) Lipase (73-393) U/L Lyme Disease IgG Ab Negative (Negative) Lyme Disease IgM Ab Negative (Negative) COVID-19 Eval Order SARS-CoV-2 (PCR) (Negative) Administered Medications Discontinued Medications Aspirin (Aspirin 81 Mg Chew) 324 mg PO NOW STA Stop: 04/24/21 13:25 Last Admin: 04/24/21 13:32 Dose: 324 mg Documented by: [id number] Aspirin (Aspirin 325 Mg Ectab) 325 mg PO ONE STA Stop: 04/24/21 15:33 Last Admin: 04/24/21 16:56 Dose: 325 mg Documented by: [id number] Colchicine (Colchicine 0.6 Mg Tab) 1.2 mg PO NOW STA Stop: 04/24/21 15:05 Last Admin: 04/24/21 15:21 Dose: 1.2 mg Documented by: [id number] Imaging Data Radiologist's Impression: Chest X-Ray 04/24/21 13:13 XR chest 1V portable CLINICAL HISTORY: Chest Pain COMPARISON STUDY: Chest radiograph July 12, 2020. FINDINGS: Lung volumes are at the lower limits of normal. This is unchanged. There is no pneumothorax or pleural effusion. Apparent left basilar opacity is probably artifactual. Cardiac size is normal. There is no evidence for pulmonary edema. IMPRESSION: No definite acute cardiopulmonary findings. Apparent left basilar opacity which is probably artifactual. ACT 112: Negative or not required by law. Electronically signed by: Dannie Jurado M.D. 04/24/2021 1:34 PM Discharge Plan Visit Data Chief Complaint: Chest Pain Stated Complaint: CHEST PAIN WHEN BREATHING,SOB ED Provider: Clifford Mejia Discharge Problem: Chest pain, Pericarditis Patient Disposition: Admitted As Inpatient Discharge Instructions Interventions: ED Discharge Assessment Last Done: 04/24/21 17:03 Forms Stand Alone Forms: My [facility] Prescriptions Prescriptions: No Action omeprazole 20 mg tablet,delayed release (DR/EC) 20 mg PO QPM Qty: 90 RF: 3 lisinopril 5 mg tablet 5 mg PO QAM Qty: 90 RF: 3 sertraline 100 mg tablet 200 mg PO QPM Qty: 60 RF: 5 metformin 1,000 mg tablet 1,000 mg PO BID Qty: 180 RF: 3 tamsulosin [Flomax] 0.4 mg capsule 0.4 mg PO DAILY Qty: 10 RF: 2 atorvastatin 20 mg tablet 20 mg PO DAILY Qty: 90 RF: 3 Victoza 3-Sharan 0.6 mg/0.1 mL (18 mg/3 mL) pen injector 1.8 mg SQ QDD Qty: 2 RF: 4 Tresiba FlexTouch U-100 100 unit/mL (3 mL) insulin pen 10 unit subcut DAILY 30 Days Qty: 3 RF: 2 Liver Capsule 1 cap PO DAILY RF: 0 Referrals Referrals: ProAdy MD [Primary Care Provider] -
[2021-04-24 13:33] LABS: Prothrombin Time 10.3 Seconds (9.0-12.0)
--- NOTE | 2021-04-24 13:35 | XRay Report ---
XR chest 1V portable CLINICAL HISTORY: Chest Pain COMPARISON STUDY: Chest radiograph July 12, 2020. FINDINGS: Lung volumes are at the lower limits of normal. This is unchanged. There is no pneumothorax or pleural effusion. Apparent left basilar opacity is probably artifactual. Cardiac size is normal. There is no evidence for pulmonary edema. IMPRESSION: No definite acute cardiopulmonary findings. Apparent left basilar opacity which is proba amirah artifactual. ACT 112: Negative or not required by law. Electronically signed by: Dannie Jurado M.D. 04/24/2021 1:34 PM
[2021-04-24 13:40] LABS: Alanine Aminotransferase 48 U/L (12-78); Albumin Level 4.2 gm/dl (3.4-5.0); Aspartate Aminotransferase 24 U/L (15-37); BUN Creatinine Ratio 19.4 (10-20); Blood Urea Nitrogen 18 mg/dl (7-18); Calcium 9.6 mg/dl (8.5-10.1); Carbon Dioxide 24 mmol/L (21-32); Chloride 104 mmol/L (98-107); Est GFR (African American) 106.5 ml/min; Est GFR (Non-African American) 91.9 ml/min; Glucose 182 mg/dl (70-99); Lipase 213 U/L (73-393); Potassium 3.6 mmol/L (3.5-5.1); Sodium 136 mmol/L (136-145)
[2021-04-24 13:45] LABS: Albumin Globulin Ratio 1.1 (0.9-2); Alkaline Phosphatase 95 U/L (45-117); Bilirubin,Total 0.4 mg/dl (0.2-1); Total Protein 8.2 gm/dl (6.4-8.2); Troponin I < 0.015 ng/ml (0-0.045)
[2021-04-24 14:03] LABS: Hematocrit (blood only) 40.5 % (42-52); Hemoglobin 13.7 g/dL (14.0-18.0); Mean Corpuscular Hemoglobin 30.1 pg (25-34); Mean Corpuscular Hgb Conc 33.8 g/dL (32-36); Mean Platelet Volume 11.2 fL (7.4-10.4); Platelet Count 98 K/uL (130-400); RDW Coefficient of Variation 13.8 % (11.5-14.5); RDW Standard Deviation 45.1 fL (36.4-46.3); Red Blood Count 4.55 M/uL (4.7-6.1); White Blood Count 8.26 K/uL (4.8-10.8)
[2021-04-24 14:04] LABS: Basophils # (auto) 0.04 K/uL (0-0.2); Basophils % (auto) 0.5 %; Eosinophils # (auto) 0.26 K/uL (0-0.5); Eosinophils % (auto) 3.1 %; Immature Granulocytes # (auto) 0.01 K/uL (0.00-0.02); Immature Granulocytes % (auto) 0.1 %; Lymphocytes # (auto) 2.45 K/uL (1.2-3.4); Lymphocytes % (auto) 29.7 %; Monocytes # (auto) 0.54 K/uL (0.11-0.59); Monocytes % (auto) 6.5 %; Neutrophils # (auto) 4.96 K/uL (1.4-6.5); Neutrophils % (auto) 60.1 %; Platelet Estimate Decreased (Normal); RBC Morphology Unremarkable
--- NOTE | 2021-04-24 15:01 | History & Physical Report ---
Date of Service April 24, 2021 Assessment & Plan (1) Pericarditis: Serial troponins overnight to r/o CAD/HI given significant risk factors ESR/CRP, TTE Colchicine 1.2mg PO BID today, then 0.6mg PO BID Aspirin 650mg PO TID - switch to NSAID if troponins are negative overnight (2) Anxiety: Continue sertraline 200mg PO daily (3) Type 2 diabetes mellitus: HbA1C 7.7 in January Continue Lantus 10 units HS Victoza 1.8mg SQ daily Hold metformin (4) Obstructive sleep apnea syndrome, moderate: CPAP HS (5) Hypertension: Continue outpatient med - lisinopril 5mg PO daily Admission and Anticipated Discharge Date Admission Date: April 24, 2021 History of Present Illness Chief Complaint: Chest pain Primary Care Provider: Ady Grimm MD Vidal Jung is a 61 year old male who presents to the ER with chest pain. Started this morning around 3am. Pleuritic in nature. Very positional and worse on lying flat. No worse on exertion (better when he would stand up. He couldn't get comfortable on back or side last night but eventually got back to sleep after taking Advil which helped slightly. Anytime he would lay back down severity would increase to 8/10. Radiation to shoulders. 3am was the worst the pain got. Woke again this morning around 7am pain level down to 2/10. When he took a shower it mostly went away. No diaphoresis, shortness of breath, dizziness. In the ER ST elevations noted on inferior leads which on repeat appear more widespread. Initial troponin negative. He was referred to medicine for admission and ongoing management of chest pain, pericarditis. Allergies Allergy/AdvReac Type Severity Reaction Status Date / Time No Known Drug Allergies Allergy Verified 04/24/21 14:41 Home Medications Medication Instructions Recorded Confirmed Type omeprazole 20 mg tablet,delayed 20 mg PO QPM #90 tab 03/30/20 04/24/21 Rx release liraglutide 0.6 mg/0.1 mL (18 mg/3 1.8 mg SQ QDD #2 syr 07/17/20 04/24/21 Rx mL) subcutaneous pen injector tamsulosin 0.4 mg capsule 0.4 mg PO DAILY #10 cap 08/28/20 04/24/21 Rx atorvastatin 20 mg tablet 20 mg PO DAILY #90 tab 09/16/20 04/24/21 Rx lisinopril 5 mg tablet 5 mg PO QAM #90 tab 01/01/21 04/24/21 Rx sertraline 100 mg tablet 200 mg PO QPM #60 tab 01/18/21 04/24/21 Rx insulin degludec 100 unit/mL (3 10 unit SUBCUT DAILY 30 Days #3 ml 02/16/21 04/24/21 Rx mL) subcutaneous pen metformin 1,000 mg tablet 1,000 mg PO BID #180 tab 02/22/21 04/24/21 Rx liver extract [Liver] 1 cap PO DAILY 04/24/21 04/24/21 History Past Med/Surg History Medical History (Updated 04/24/21 @ 15:30 by Pierce Hart MD) Anxiety Devine's palsy BPH (benign prostatic hyperplasia) Chronic iritis Coronary artery calcification seen on CAT scan GERD (gastroesophageal reflux disease) Hyperlipidemia Hypertension Kidney stones Nonalcoholic fatty liver disease follows with Dr Cali Wray, [facility] GI Obesity Obstructive sleep apnea syndrome, moderate Uncontrolled type 2 diabetes mellitus with complication Wrist fracture, left Surgical History History of colonoscopy (~09/2012) History of esophagogastroduodenoscopy (EGD) (~12/2018) history of varices History of lithotripsy History of tooth extraction Family History Father Family history of diabetes mellitus Hypertension Coronary heart disease Polymyalgia rheumatica Mother Hyperthyroidism Brother , age 42 Alcoholic cirrhosis Sister No problems noted. 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 do You have: 2 How many Children do You have Comment: 1 daughter, 1 son Other Information That Helps Us Care for You: No Feels Safe at Home: Yes Safety Concerns: Feels Safe At This Time Assistive Devices: BiPap Review of Systems Review of Systems: All systems reviewed & are unremarkable except as noted in HPI & below Physical Exam Constitutional: WD/WN, vitals as above + obese Eyes: + anicteric sclerae; normal pupil size ENMT: external ear and nose normal, oropharynx normal Respiratory: normal respiratory effort, lungs clear to auscultation Cardiovascular: RRR, no murmur, no edema Gastrointestinal (Abdomen): normal bowel sounds, soft, nontender, no hepatosplenomegaly Musculoskeletal: no cyanosis or clubbing, extremities motor strength 5/5 Skin: no rashes, warm and dry Neurologic: moves all extremities and awake; not confused Psychiatric: A+Ox3, euthymic affect Results & Data Results & Data ([facility]) Vital Signs (Past 12 Hours) Vital Signs Temp Pulse Pulse Resp BP BP Pulse Ox 04/24/21 14:30 78 18 120/82 95 04/24/21 14:15 76 21 129/73 96 04/24/21 14:01 75 20 131/85 95 04/24/21 13:45 78 18 123/81 94 04/24/21 13:35 88 15 119/78 96 04/24/21 13:26 82 18 121/83 96 04/24/21 13:25 81 20 121/83 98 04/24/21 12:58 36.4 C L 86 16 164/76 H 96 Diagnostic Findings XR chest 1V portable IMPRESSION: No definite acute cardiopulmonary findings. Apparent left basilar opacity which is probably artifactual. Medications Administered ER Medications Given: ASA 324mg PO chew ECG Indication: chest pain Rate (beats per minute): 75 Rhythm: normal sinus Findings: + ST elevation (Inferior) Comparison ECG Date: from (July 12, 2020) Change: the following changes noted (ST elevation is new) Code Status & VTE Plan Code Status Full VTE Prophylaxis Plan VTE Prophylaxis will be ordered: No PG Care Time/CCT Total # of Minutes Spent Total Time Spent with Patient: Total time spent is greater than 50% in coordination of care (as documented) at patient's floor/unit and/or counseling patient: Coding Level of Care Code 79009 Initial Inpt Care Lvl 3 Diagnoses Pericarditis I31.9 Anxiety F41.9 Type 2 diabetes mellitus E11.9 Obstructive sleep apnea syndrome, moderate G47.33 Hypertension I10 Hypertension type: essential hypertension (1) Hypertension Hypertension type: essential hypertension Qualified Code(s): I10 - Essential (primary) hypertension
[2021-04-24] MEDS ORDERED: COLCHICINE 0.6 MG TAB PO STA (15:04)
[2021-04-24 15:21] LABS: C Reactive Protein 1.63 mg/dl (0-0.29)
[2021-04-24] MEDS ORDERED: ASPIRIN 325 MG ECTAB PO STA (15:32)
[2021-04-24 16:44] LABS: Lyme Ab IgG w/WB Rflx Negative (Negative); Lyme Ab IgM w/WB Rflx Negative (Negative)
[2021-04-24] MEDS ORDERED: ACETAMINOPHEN 325 MG TAB PO PRN (17:33)
[2021-04-24] MEDS ORDERED: ONDANSETRON INJ 2 MG/ML 2 ML VIAL IV PRN (17:33)
[2021-04-24] MEDS ORDERED: GLUCOSE 10 TABS/TUBE PO PRN (18:00)
[2021-04-24] MEDS ORDERED: GLUCOSE 40% GEL 15 GM TUBE PO PRN (18:00)
[2021-04-24] MEDS ORDERED: CARBOHYDRATES FOR HYPOGLYCEMIA PO PRN (18:00)
[2021-04-24] MEDS ORDERED: GLUCAGON FOR INJ 1 MG VIAL IM PRN (18:00)
[2021-04-24] MEDS ORDERED: DEXTROSE 50% 50 ML SYRINGE IV PRN (18:00)
[2021-04-24] MEDS: ASPIRIN 325 MG ECTAB PO SCH (20:40)
[2021-04-24] MEDS ORDERED: PANTOprazole 40 MG TAB PO SCH (21:00)
[2021-04-24] MEDS ORDERED: SERTRALINE HCL 100 MG TABLET PO SCH (21:00)
[2021-04-24] MEDS ORDERED: COLCHICINE 0.6 MG TAB PO ONE (21:00)
[2021-04-24] MEDS ORDERED: INSULIN GLARGINE SOLOSTAR 100 UNITS/ML 3 ML PEN SC SCH ×2 (21:00)
[2021-04-25] MEDS: ASPIRIN 325 MG ECTAB PO SCH ×2 (08:05→13:37)
[2021-04-25] MEDS ORDERED: COLCHICINE 0.6 MG TAB PO SCH (09:00)
[2021-04-25] MEDS ORDERED: lisinopril 5 MG TAB PO SCH (09:00)
[2021-04-25] MEDS ORDERED: TAMSULOSIN HCL 0.4 MG CAP PO SCH (09:00)
[2021-04-25] MEDS ORDERED: ATORVASTATIN 20 MG TAB PO SCH (09:00)
--- NOTE | 2021-04-25 10:33 | Electrocardiogram Report ---
Test Reason : Blood Pressure : / mmHG Vent. Rate : 075 BPM Atrial Rate : 075 BPM P-R Int : 150 ms QRS Dur : 094 ms QT Int : 404 ms P-R-T Axes : 022 -12 061 degrees QTc Int : 451 ms Normal sinus rhythm ST elevation slightly worse in the inferior leads without significant reciprocal changes Abnormal ECG When compared with ECG of 12-JUL-2020 12:55, Mild ST elevation now present in Inferior leads Confirmed by Ernst Griffith ([id number]) on 04/25/2021 10:32:57 AM Referred By: REFERRED SELF Confirmed By:Ernst Griffith
--- NOTE | 2021-04-25 10:33 | Electrocardiogram Report ---
Test Reason : Blood Pressure : / mmHG Vent. Rate : 074 BPM Atrial Rate : 074 BPM P-R Int : 154 ms QRS Dur : 100 ms QT Int : 394 ms P-R-T Axes : 000 -21 051 degrees QTc Int : 437 ms Normal sinus rhythm ST elevation, consider early repolarization, pericarditis, or injury Abnormal ECG When compared with ECG of 24-APR-2021 13:07, (unconfirmed) No significant change was found Confirmed by Ernst Griffith ([id number]) on 04/25/2021 10:33:35 AM Referred By: REFERRED SELF Confirmed By:Ernst Griffith
--- NOTE | 2021-04-25 11:59 | Cardiology Consultation ---
Date of Consultation Patient notes that he had chest discomfort laying flat that was better sitting up and even better standing. He had discomfort to his left shoulder and between his shoulder blades. He denies any diaphoresis. He denies any shortness of breath with it. He did have some pleuritic discomfort as well. With normal activity over the last weeks or days he has not noticed any change or increasing shortness of breath. Denies any presyncope syncope or falls. [place] any palpitations or fluttering or feeling his heart racing. Denies any lower extremity edema or symptoms of claudication. He does note in the past he has had a history with uveitis. He also thinks that his mouth is slightly more dry along with his eye on the side where he had his Devine's palsy. With high-dose aspirin and colchicine his symptoms have completely resolved. He feels like he is back to himself. He denies any recent viral infections or upper respiratory infections. His second Covid vaccination was in December. The rest of a complete review of systems otherwise negative April 25, 2021 History of Present Illness Attending Physician: Pierce Daniels Allergies Allergy/AdvReac Type Severity Reaction Status Date / Time No Known Drug Allergies Allergy Verified 04/24/21 14:41 Home Medications Medication Instructions Recorded Confirmed Type omeprazole 20 mg tablet,delayed 20 mg PO QPM #90 tab 03/30/20 04/24/21 Rx release liraglutide 0.6 mg/0.1 mL (18 mg/3 1.8 mg SQ QDD #2 syr 07/17/20 04/24/21 Rx mL) subcutaneous pen injector tamsulosin 0.4 mg capsule 0.4 mg PO DAILY #10 cap 08/28/20 04/24/21 Rx atorvastatin 20 mg tablet 20 mg PO DAILY #90 tab 09/16/20 04/24/21 Rx lisinopril 5 mg tablet 5 mg PO QAM #90 tab 01/01/21 04/24/21 Rx sertraline 100 mg tablet 200 mg PO QPM #60 tab 01/18/21 04/24/21 Rx insulin degludec 100 unit/mL (3 10 unit SUBCUT DAILY 30 Days #3 ml 02/16/21 04/24/21 Rx mL) subcutaneous pen metformin 1,000 mg tablet 1,000 mg PO BID #180 tab 02/22/21 04/24/21 Rx liver extract [Liver] 1 cap PO DAILY 04/24/21 04/24/21 History Patient History Medical History Anxiety Devine's palsy BPH (benign prostatic hyperplasia) Chronic iritis Coronary artery calcification seen on CAT scan GERD (gastroesophageal reflux disease) Hyperlipidemia Hypertension Kidney stones Nonalcoholic fatty liver disease follows with Dr Cali Wray [facility] GI Obesity Obstructive sleep apnea syndrome, moderate Uncontrolled type 2 diabetes mellitus with complication Wrist fracture, left Surgical History History of colonoscopy (~09/2012) History of esophagogastroduodenoscopy (EGD) (~12/2018) history of varices History of lithotripsy History of tooth extraction Family History Father Family history of diabetes mellitus Hypertension Coronary heart disease Polymyalgia rheumatica Mother Hyperthyroidism Brother , age 42 Alcoholic cirrhosis Sister No problems noted. 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/[employer] How many Children do You have: 2 How many Children do You have Comment: 1 daughter, 1 son Other Information That Helps Us Care for You: No Feels Safe at Home: Yes Safety Concerns: Feels Safe At This Time Assistive Devices: CPAP Results & Data ([facility]) Vital Signs (Past 12 Hours) Vital Signs Temp Pulse Pulse Resp BP Pulse Ox 04/25/21 10:56 36.7 C 80 20 111/74 98 04/25/21 07:30 73 04/25/21 07:08 36.4 C L 75 20 109/69 96 04/25/21 05:00 36.6 C 76 20 122/77 95 04/25/21 03:40 82 18 96 He is awake alert oriented x3 is in no acute distress HEENT: 2+ carotid upstrokes normal to carotid bruits Lungs: Clear to auscultation bilaterally no rales rhonchi wheezing Heart: Regular rate and rhythm no appreciable murmurs rubs or gallops Abdomen: Soft nontender distended positive bowel sounds Extremities no clubbing cyanosis or edema Psychiatric zapped appear appropriate IMPRESSIONS: 1. Chest pain consistent with pericarditis 2. Negative stress echo for ischemia December 2019 secondary to coronary calcification seen on a CAT scan 3. Normal biventricular size and function without evidence of a regional wall motion abnormality and no evidence of pericardial effusion 4. Troponins negative this admission 5. Subtle inferior wall ST changes that have resolved over this admission His signs and symptoms are most consistent with pericarditis and his symptoms have completely resolved with high-dose aspirin and colchicine. He can be discharged home on high-dose aspirin as he is on along with twice daily colchicine and this could be weaned as an outpatient. He should be on a proton pump inhibitor to protect his stomach. He can follow-up with Drs. Gamez as an outpatient who he has seen before. There is nothing to suggest an acute coronary syndrome. He denies a recent viral illness or upper respiratory tract infection and his Covid vaccine was in December. His inpatient Covid test was negative as well. This was discussed with Dr. Sierra..
[2021-04-25] MEDS ORDERED: OPTIRAY 350 500ml IV ONE (13:47)
--- NOTE | 2021-04-25 14:11 | CT Scan Report ---
CT ANGIOGRAM OF THE CHEST CLINICAL HISTORY: Pleuritic chest pain. Night sweats. COMPARISON STUDY: Chest x-ray dated 04/24/2021. TECHNIQUE: Following the IV administration of 111 cc of Optiray 350, CT angiogram of the chest was pe rformed from the upper abdomen to the thoracic inlet utilizing the pulmonary embolus protocol. Images are reviewed in the axial, sagittal, and coronal planes. 3-D MIPS images are created and assessed. I V contrast was administered without complication. A dose lowering technique was utilized adhering to the principles of ALARA. CT DOSE: 591.07 mGy.cm FINDINGS: Thyroid: Imaged portions of the thyroid gland are normal in size and attenuation. Thoracic aorta: The thoracic aorta is normal in caliber and demonstrates standard 3-vessel arch anato my. No dissection is seen. Pulmonary vasculature: The pulmonary trunk is normal in caliber. There are no filling defects identif ied in main, lobar, or segmental pulmonary branches to suggest pulmonary embolus. Heart: The heart is mildly enlarged and without pericardial effusion. The coronary arteries are dense ly calcified. Lungs and pleural spaces: The lungs and pleural spaces are clear. The trachea and central airways are patent. Mediastinum: There is no mediastinal lymphadenopathy. Corrine: Clear. Axillae: There is no axillary lymphadenopathy. Upper abdomen: The liver is enlarged and steatotic. Nodularity of the hepatic surface contour suggest s early change of cirrhosis. There is a small hiatal hernia. The partially visualized spleen appears enlarged. Skeletal structures: No lytic or blastic bony lesions are seen. IMPRESSION: 1. There is no evidence of pulmonary embolus in the main, lobar, or segmental pulmonary arteries. 2. The lungs are clear. 3. Mild cardiomegaly with advanced coronary artery calcification. 4. The liver is enlarged and steatotic. Nodularity of the hepatic surface contour suggests early lombardo ge of cirrhosis. 5. Additional findings as above. ACT 112: Negative or not required by law. Electronically signed by: Adarsh La M.D. 04/25/2021 2:09 PM
--- NOTE | 2021-04-25 14:21 | Discharge Summary ---
Date of Service date of admission - April 24, 2021 date of discharge -April 25, 2021 Admission HPI Per Admitting Provider Vidal Jung is a 61 year old male who presents to the ER with chest pain. Started this morning around 3am. Pleuritic in nature. Very positional and worse on lying flat, better with standing. No worse on exertion. He couldn't get comfortable on back or side last night but eventually got back to sleep after taking Advil which helped. Anytime he would lay back down severity would increase to 8/10. Radiation to shoulders. 3am was the worst the pain got. Woke again this morning around 7am pain level down to 2/10. When he took a shower it mostly went away. No diaphoresis, shortness of breath, dizziness. In the ER ST elevations noted on inferior leads which on repeat appear more widespread. Initial troponin negative. He was referred to medicine for admission and ongoing management of chest pain and suspicion of pericarditis. Principal Diagnosis acute pericarditis Discharge Exam Constitutional well developed and well nourished; no acute distress and no altered mental status Eyes PERRL; no conjunctival abnormality, no scleral abnormality and no photophobia ENMT external ear and nose normal, oropharynx normal Respiratory normal respiratory effort, lungs clear to auscultation Cardiovascular Rate/Rhythm: regular rate and regular rhythm Heart Sounds: normal S1 and normal S2; no murmur Vessels: posterior tibial pulses present, dorsalis pedis pulses present and radial pulses present; no JVD Extremities: no edema Chest (Breasts) Additional Comments: no reproducible chest wall tenderness to palpation Gastrointestinal (Abdomen) normal bowel sounds, soft, nontender, no hepatosplenomegaly Skin no rashes, warm and dry Psychiatric A+Ox3, euthymic affect Lymphatic no cervical lymphadenopathy and no axillary lymphadenopathy Discharge Data Allergies Allergy/AdvReac Type Severity Reaction Status Date / Time No Known Drug Allergies Allergy Verified 04/30/21 16:12 Consultations Cardiology - Ernst Griffith DO ([facility]) Procedures Performed Echocardiogram - 04/24/21: Normal LV size, wall motion and systolic function. EF 60-65%. Grade II diastolic dysfunction. No significant valvular pathology. No pericardial effusion. Ordered Studies Chest X-Ray 04/24/21 13:13 XR chest 1V portable CLINICAL HISTORY: Chest Pain COMPARISON STUDY: Chest radiograph July 12, 2020. FINDINGS: Lung volumes are at the lower limits of normal. This is unchanged. There is no pneumothorax or pleural effusion. Apparent left basilar opacity is probably artifactual. Cardiac size is normal. There is no evidence for pulmonary edema. IMPRESSION: No definite acute cardiopulmonary findings. Apparent left basilar opacity which is probably artifactual. ACT 112: Negative or not required by law. Electronically signed by: Dannie Jurado M.D. 04/24/2021 1:34 PM Chest CTA 04/25/21 13:31 CT ANGIOGRAM OF THE CHEST CLINICAL HISTORY: Pleuritic chest pain. Night sweats. COMPARISON STUDY: Chest x-ray dated 04/24/2021. TECHNIQUE: Following the IV administration of 111 cc of Optiray 350, CT angiogram of the chest was performed from the upper abdomen to the thoracic inl et utilizing the pulmonary embolus protocol. Images are reviewed in the axial, sagittal, and coronal planes. 3-D MIPS images are created and assessed. IV contrast was administered without complication. A dose lowering technique was utilized adhering to the principles of ALARA. CT DOSE: 591.07 mGy.cm FINDINGS: Thyroid: Imaged portions of the thyroid gland are normal in size and attenuation. Thoracic aorta: The thoracic aorta is normal in caliber and demonstrates standard 3-vessel arch anatomy. No dissection is seen. Pulmonary vasculature: The pulmonary trunk is normal in caliber. There are no filling defects identified in main, lobar, or segmental pulmonary branches to suggest pulmonary embolus. Heart: The heart is mildly enlarged and without pericardial effusion. The coronary arteries are densely calcified. Lungs and pleural spaces: The lungs and pleural spaces are clear. The trachea and central airways are patent. Mediastinum: There is no mediastinal lymphadenopathy. Corrine: Clear. Axillae: There is no axillary lymphadenopathy. Upper abdomen: The liver is enlarged and steatotic. Nodularity of the hepatic surface contour suggests early change of cirrhosis. There is a small hiatal hernia. The partially visualized spleen appears enlarged. Skeletal structures: No lytic or blastic bony lesions are seen. IMPRESSION: 1. There is no evidence of pulmonary embolus in the main, lobar, or segmental pulmonary arteries. 2. The lungs are clear. 3. Mild cardiomegaly with advanced coronary artery calcification. No pericardial effusion. 4. The liver is enlarged and steatotic. Nodularity of the hepatic surface contour suggests early change of cirrhosis. 5. Additional findings as above. ACT 112: Negative or not required by law. Electronically signed by: Adarsh La M.D. 04/25/2021 2:09 PM Hospital Course (1) Pericarditis: Patient's presenting symptoms - especially the clinical features of pain that was worse with laying down and improved with sitting/standing - along with his EKG changes - were highly suggestive of acute pericarditis. CTA chest was negative for PE or other pathology. Troponins were negative x 3. Sed rate was normal, but CRP was minimally elevated at 1.6. Telemetry was normal during his short stay. COVID testing was negative. Echocardiogram did not show any pericardial effusion. There were no LV regional wall motion abnormalities. He had a rapid response to aspirin and colchicine therapy again highly suggestive of pericarditis given his symptomatology. He was seen in consult by Dr Ernst Griffith, [facility], who felt that his clinical picture was most consistent with acute pericarditis. Although he has a past history of uveitis, the patient has had no recent symptoms or signs of any rheumatological disorder. The patient did report having had the COVID vaccine this year but this was several months ago. Statistically the cause of his pericarditis was likely a virus. He will take aspirin 650mg three times daily along with colchicine 0.6mg twice daily at discharge. He was asked to follow-up with [facility] within 5 days to discuss his treatment regimen and to ensure he is feeling better. Given his known esophageal varices from NAFLD (follows with Dr Cali Wray, [facility]) I increased his omeprazole to 40mg daily. He was counseled to look for any signs of upper GI bleeding while on high-dose aspirin (melena, etc). Finally, he was advised to perform light duty activities upon discharge and only return to full activity once cleared by cardiology. (2) Type 2 diabetes mellitus: HbA1C 7.7% in January 2021. He will continue Lantus 10 units HS and Victoza 1.8mg SQ daily. Hold metformin at discharge until creatinine can be repeated as an outpatient (due to IV contrast dye for CT scan). (3) Hypertension: Continue nadalol and lisinopril. (4) Esophageal varices: History of. Has known NAFLD. Follows with Dr Cali Wray at [facility]. Patient appeared compensated on exam during his brief stay. See above re: PPI. (5) Nonalcoholic fatty liver disease: see above. Incidentally on CTA the patient's liver had cirrhotic appearing changes c/w his NAFLD. (6) Thrombocytopenia: Chronic. 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 Baseline platelet count ~100. Stable during the stay. (7) History of uveitis: None present during this stay. (8) Anxiety: Continue sertraline 200mg PO daily. (9) Obstructive sleep apnea syndrome, moderate: CPAP HS. Total Time Total Time Spent Total Time Spent (In Minutes): 45 Total Time Includes: Examination of the Patient, Discharge Planning, Medication Reconciliation and Communication With Other Providers Discharge Plan Discharge Items Patient Disposition: Home - Self-Care Reason For Visit: CHEST PAIN with concern for PERICARDITIS Discharge Diagnosis: 1. chest pains likely due to acute pericarditis; no evidence of heart attack or blood clots in the lungs 2. acute pericarditis - etiology not fully certain, but most common cause is a virus Activity: Per Instructions section Lifting: No more than 10 pounds Bathing: No limitations Sexual Activity: Wait until after follow-up appointment Exercise/Sports: Wait until after follow-up appointment Driving/Machine Use: Resume 1 day after discharge Non-emergency contact: Primary Care Provider and [employer] Call non-emergency contact if: you have any medication questions, your symptoms worsen, your pain is not controlled and your pain is worsening Follow-up/Referrals: Pro,Ady Maldonado MD [Primary Care Provider] - Eugene Veras Jr, MD, [facility] [Physician] - (see Dr Veras within 5 days ) Diet: Carb Consistent or DM2 and Heart Healthy Addtl Attending Provider Instructions: Mr Jung, You were admitted to the hospital because of chest pains that radiated into your upper back. The pain was worse with deep breaths, laying down, etc. We did not find evidence of heart attack. We did not find any blood clots, pneumonia, swollen glands, etc on CAT scan of the lungs. Your inflammatory markers (sed rate, crp levels) were relatively normal. Your echocardiogram was normal. Specifically, we did not see fluid build-up in the sac of the heart called the "pericardium." However, you did have EKG changes that suggested pericarditis. This, coupled with your rapid response to anti-inflammatory pills, all pointed towards acute pericarditis. Your symptoms were also fairly typical for pericarditis. You were seen by Dr Griffith from [facility] who also felt you had pericarditis. One of the most common causes of pericarditis is a virus. Numerous respiratory viruses can cause pericarditis. Pericarditis is typically self-limited and usually responds well to the medications listed below. Recommendations - 1. aspirin [id number] 650mg three times daily. This is usually taken for 1-[address] Veras will provide the final guidance on how long to take for. Take with food. 2. colchicine 0.6mg twice daily. This is often taken for several months. It may cause mildly loose stool. This is a typical side effect. 3. INCREASE your omeprazole to 40mg once daily. Start TODAY. This is to protect your stomach from the effects of aspirin. 4. STOP your metformin due to IV contrast given for your CAT scan. Please have a blood draw on April 27. If blood work is normal you can resume your metformin then. 5. since you have esophageal varices (dilated blood vessels in your esophagus) -- if you see dark, black or tarry stools -- please stop the aspirin right away and call your family doctor or GI doctor. 6. take it easy for the next few days until you see Dr Veras. No heavy exertional activities, lifting, etc until he sees you. 7. see Dr Veras within 5 days. Check in with Dr Grimm this week as well. He will need to review your blood draw on Monday. Return to [facility] if - * you have worsening chest pains despite taking the above medications * you have shortness of breath * you have dark/black/tarry stools * any other concerns Continue to feel better! -Dr Daniels Pending Studies at Discharge: No Stand-Alone Forms: My [facility], Smoking Cessation Medications and DC Order Prescriptions: New aspirin [Ecotrin] 325 mg Tablet,Delayed Release (Dr/Ec) 650 mg PO TID 14 Days Qty: 84 RF: 0 colchicine [Colcrys] 0.6 mg Tablet 0.6 mg PO BID Qty: 60 RF: 2 omeprazole 40 mg capsule,delayed release(DR/EC) 40 mg PO DAILY Qty: 30 RF: 5 Continued lisinopril 5 mg tablet 5 mg PO QAM Qty: 90 RF: 3 sertraline 100 mg tablet 200 mg PO QPM Qty: 60 RF: 5 tamsulosin [Flomax] 0.4 mg capsule 0.4 mg PO DAILY Qty: 10 RF: 2 atorvastatin 20 mg tablet 20 mg PO DAILY Qty: 90 RF: 3 Victoza 3-Sharan 0.6 mg/0.1 mL (18 mg/3 mL) pen injector 1.8 mg SQ QDD Qty: 2 RF: 4 Tresiba FlexTouch U-100 100 unit/mL (3 mL) insulin pen 10 unit subcut DAILY 30 Days Qty: 3 RF: 2 Discontinued metformin 1,000 mg tablet 1,000 mg PO BID Qty: 180 RF: 3 No Action metformin 1,000 mg tablet 1,000 mg PO BID RF: 0 Hold Instructions: until patient see's Dr Veras nadolol 20 mg tablet 20 mg PO DAILY RF: 0 Discharge Orders: Discharge Order (Routine); Ordered 04/25/21 Ordered By: Pierce Barrett/Other Patient Handouts: ED Pericarditis Admission Data Admit Date/Time: 04/24/21 15:29 Attending Provider: Pierce Daniels Admit Provider: Pierce Hatr Primary Care Provider: Ady Grimm Other Providers: Pierce Hart ; Ernst Griffith ; Harjeet Mata Other Interventions: Discharge Summary Assessment (RN) Last Done: 04/25/21 14:23 Coding Level of Care Code D/C Day Management >30 mins Diagnoses Pericarditis I31.9 Type 2 diabetes mellitus E11.9 Hypertension I10 Hypertension type: essential hypertension Esophageal varices I85.10 Esophageal varices type: secondary Esophageal varices bleeding: without bleeding Nonalcoholic fatty liver disease K76.0 Thrombocytopenia D69.6 History of uveitis Z86.69 Anxiety F41.9 Obstructive sleep apnea syndrome, moderate G47.33
== END 2021-04-25 16:00 | disposition home or self-care (01) | DRG 315 ==
LOC: ED 12:54 → SUATTDRO 15:29 → 2S 15:29